=== PATIENT | male | born 1935 | race African-American/Black ===

== ENCOUNTER 2016-09-17 13:05 | Inpatient (IN) | payer MEDICARE, MEDICAID ==
[~2016-09-17] VITALS: Ht 172.7 cm; Wt 80.2 kg
[~2016-09-17 13:05] MED LIST: CARV12.52 PO; FURO40TA6 PO
[2016-09-17] MEDS ORDERED: SODIUM CHLORIDE 0.9% 1,000 ML IV ONE (13:23)
[2016-09-17] MEDS ORDERED: SODIUM CHLORIDE FLUSH 10ML SYR IVF ONE (13:30)
[2016-09-17 13:58] LABS: ASPARTATE AMINO TRANSFERASE 30 U/L (15-37); BLOOD UREA NITROGEN 13 mg/dL (7-18)
[2016-09-17] MEDS ORDERED: ACETAMINOPHEN 325 MG TABLET PO PRN (14:30)
[2016-09-17] MEDS ORDERED: ONDANSETRON 2MG/ML, 2ML IVP PRN (14:30)
[2016-09-17] MEDS ORDERED: CLINDAMYCIN PMX 600MG/50ML 50 ML ONE (14:53)
[2016-09-17] MEDS: CLINDAMYCIN PMX 600MG/50ML 50 ML IV SCH ×2 (14:56→22:31)
[2016-09-17 15:29] VITALS: BP 162/76
[2016-09-17] MEDS: ENOXAPARIN 40 MG/0.4 ML SQ SCH (15:45)
[2016-09-17] MEDS: ASPIRIN 81 MG TABLET EC PO SCH (15:45)
[2016-09-17] MEDS: CARVEDILOL 6.25 MG TABLET PO SCH (17:43)
[2016-09-17 19:08] VITALS: BP 158/72
[2016-09-17] MEDS: FAMOTIDINE 20 MG TABLET PO SCH (21:05)
[2016-09-18 01:37] VITALS: BP 151/68
[2016-09-18 05:38] LABS: BLOOD UREA NITROGEN 12 mg/dL (7-18)
[2016-09-18] MEDS: CARVEDILOL 6.25 MG TABLET PO SCH ×2 (06:06→17:55)
[2016-09-18] MEDS: ASPIRIN 81 MG TABLET EC PO SCH (06:06)
[2016-09-18] MEDS: CLINDAMYCIN PMX 600MG/50ML 50 ML IV SCH ×3 (06:06→21:52)
[2016-09-18 07:04] VITALS: BP 144/72
[2016-09-18] MEDS ORDERED: FUROSEMIDE 40 MG/4 ML IV SCH (09:00)
[2016-09-18] MEDS: FAMOTIDINE 20 MG TABLET PO SCH ×2 (09:08→21:52)
[2016-09-18 12:26] VITALS: BP 144/69
[2016-09-18] MEDS: ENOXAPARIN 40 MG/0.4 ML SQ SCH (14:20)
[2016-09-18 17:53] VITALS: BP 150/72
[2016-09-18 19:14] VITALS: BP 156/76
[2016-09-19] VITALS (7 sets, daily range): BP systolic 159–192; BP diastolic 79–100
[2016-09-19 05:15] LABS: BLOOD UREA NITROGEN 14 mg/dL (7-18)
[2016-09-19] MEDS: CARVEDILOL 6.25 MG TABLET PO SCH (05:22)
[2016-09-19] MEDS: ASPIRIN 81 MG TABLET EC PO SCH (05:22)
[2016-09-19] MEDS: CLINDAMYCIN PMX 600MG/50ML 50 ML IV SCH ×3 (05:32→22:37)
[2016-09-19] MEDS: FAMOTIDINE 20 MG TABLET PO SCH ×2 (09:00→22:39)
[2016-09-19] MEDS: ENOXAPARIN 40 MG/0.4 ML SQ SCH (15:07)
[2016-09-19] MEDS: ENALAPRILAT 1.25 MG/ML, 2ML IVPush PRN (15:42)
[2016-09-19] MEDS: CARVEDILOL 12.5 MG TABLET PO SCH (18:16)
[2016-09-20 01:48] VITALS: BP 163/87
[2016-09-20] MEDS: ENALAPRILAT 1.25 MG/ML, 2ML IVPush PRN (02:47)
[2016-09-20 05:20] LABS: BLOOD UREA NITROGEN 13 mg/dL (7-18)
[2016-09-20] MEDS: CARVEDILOL 12.5 MG TABLET PO SCH ×2 (06:07→17:53)
[2016-09-20] MEDS: ASPIRIN 81 MG TABLET EC PO SCH (06:07)
[2016-09-20] MEDS: CLINDAMYCIN PMX 600MG/50ML 50 ML IV SCH (06:07)
[2016-09-20 06:56] VITALS: BP 153/78
[2016-09-20] MEDS: FAMOTIDINE 20 MG TABLET PO SCH ×2 (09:00→20:54)
[2016-09-20 13:02] VITALS: BP 159/82
[2016-09-20] MEDS: CLINDAMYCIN 300 MG CAPSULE PO SCH ×2 (13:42→17:53)
[2016-09-20] MEDS: ENOXAPARIN 40 MG/0.4 ML SQ SCH (17:53)
[2016-09-20 19:25] VITALS: BP 157/81
[2016-09-21 02:11] VITALS: BP 156/90
[2016-09-21 05:04] LABS: BLOOD UREA NITROGEN 12 mg/dL (7-18)
[2016-09-21] MEDS: CLINDAMYCIN 300 MG CAPSULE PO SCH ×5 (05:35→23:49)
[2016-09-21] MEDS: ASPIRIN 81 MG TABLET EC PO SCH (05:35)
[2016-09-21] MEDS: CARVEDILOL 12.5 MG TABLET PO SCH ×2 (05:35→18:33)
[2016-09-21 07:07] VITALS: BP 157/93
[2016-09-21] MEDS: FAMOTIDINE 20 MG TABLET PO SCH ×2 (11:15→19:50)
[2016-09-21 12:15] VITALS: BP 160/83
[2016-09-21] MEDS: ENOXAPARIN 40 MG/0.4 ML SQ SCH (18:33)
[2016-09-21 19:25] VITALS: BP 166/91
[2016-09-21] MEDS: ENALAPRILAT 1.25 MG/ML, 2ML IVPush PRN (20:25)
[2016-09-22 02:12] VITALS: BP 159/86
[2016-09-22] MEDS: CARVEDILOL 12.5 MG TABLET PO SCH ×2 (05:14→17:27)
[2016-09-22] MEDS: ASPIRIN 81 MG TABLET EC PO SCH (05:14)
[2016-09-22] MEDS: CLINDAMYCIN 300 MG CAPSULE PO SCH ×4 (05:14→23:42)
[2016-09-22 07:07] VITALS: BP 124/83
[2016-09-22] MEDS: FAMOTIDINE 20 MG TABLET PO SCH ×2 (09:25→21:20)
[2016-09-22 13:26] VITALS: BP 157/72
[2016-09-22] MEDS: ENOXAPARIN 40 MG/0.4 ML SQ SCH (17:27)
[2016-09-22 19:10] VITALS: BP 149/78
[2016-09-23 03:31] VITALS: BP 166/87
[2016-09-23] MEDS: CLINDAMYCIN 300 MG CAPSULE PO SCH ×4 (05:16→23:50)
[2016-09-23] MEDS: CARVEDILOL 12.5 MG TABLET PO SCH (05:16)
[2016-09-23] MEDS: ASPIRIN 81 MG TABLET EC PO SCH (05:16)
[2016-09-23 09:23] VITALS: BP 115/70
[2016-09-23] MEDS: CARVEDILOL 25 MG TABLET PO SCH ×2 (09:48→17:37)
[2016-09-23] MEDS: FAMOTIDINE 20 MG TABLET PO SCH ×2 (09:48→21:19)
[2016-09-23 15:36] VITALS: BP 139/75
[2016-09-23] MEDS: ENOXAPARIN 40 MG/0.4 ML SQ SCH (17:37)
[2016-09-23 19:15] VITALS: BP 133/74
[2016-09-24] MEDS: HYDROcodone/APAP 5/325 TABLET PO PRN (00:08)
[2016-09-24 04:00] VITALS: BP 107/67
[2016-09-24] MEDS: CLINDAMYCIN 300 MG CAPSULE PO SCH ×4 (05:46→23:38)
[2016-09-24] MEDS: ASPIRIN 81 MG TABLET EC PO SCH (05:47)
[2016-09-24] MEDS: CARVEDILOL 25 MG TABLET PO SCH ×2 (05:48→17:13)
[2016-09-24 06:43] VITALS: BP 119/75
[2016-09-24] MEDS: FAMOTIDINE 20 MG TABLET PO SCH ×2 (11:26→21:09)
[2016-09-24 12:57] VITALS: BP 126/68
[2016-09-24] MEDS: ENOXAPARIN 40 MG/0.4 ML SQ SCH (17:13)
[2016-09-24 19:25] VITALS: BP 106/62
[2016-09-25 02:10] VITALS: BP 146/95
[2016-09-25] MEDS: ASPIRIN 81 MG TABLET EC PO SCH (05:26)
[2016-09-25] MEDS: CLINDAMYCIN 300 MG CAPSULE PO SCH ×5 (05:27→23:22)
[2016-09-25] MEDS: CARVEDILOL 25 MG TABLET PO SCH ×2 (05:27→17:26)
[2016-09-25 07:28] VITALS: BP 130/73
[2016-09-25] MEDS: FAMOTIDINE 20 MG TABLET PO SCH ×2 (08:05→20:04)
[2016-09-25 13:04] VITALS: BP 138/76
[2016-09-25] MEDS: ENOXAPARIN 40 MG/0.4 ML SQ SCH (17:27)
[2016-09-25 20:19] VITALS: BP 120/73
[2016-09-26 02:14] VITALS: BP 128/77
[2016-09-26] MEDS: ASPIRIN 81 MG TABLET EC PO SCH (05:48)
[2016-09-26] MEDS: CARVEDILOL 25 MG TABLET PO SCH ×2 (05:48→17:45)
[2016-09-26] MEDS: CLINDAMYCIN 300 MG CAPSULE PO SCH ×4 (05:48→23:13)
[2016-09-26 07:14] VITALS: BP 131/68
[2016-09-26] MEDS: FAMOTIDINE 20 MG TABLET PO SCH ×2 (08:40→20:17)
[2016-09-26] MEDS: HYDROcodone/APAP 5/325 TABLET PO PRN (10:18)
[2016-09-26 13:16] VITALS: BP 139/65
[2016-09-26] MEDS: ENOXAPARIN 40 MG/0.4 ML SQ SCH (17:45)
[2016-09-26 19:24] VITALS: BP 127/64
[2016-09-27 04:00] VITALS: BP 146/76
[2016-09-27] MEDS: ASPIRIN 81 MG TABLET EC PO SCH (06:02)
[2016-09-27] MEDS: CLINDAMYCIN 300 MG CAPSULE PO SCH ×3 (06:02→17:45)
[2016-09-27] MEDS: CARVEDILOL 25 MG TABLET PO SCH ×2 (06:02→17:45)
[2016-09-27] MEDS: FAMOTIDINE 20 MG TABLET PO SCH ×2 (07:58→20:10)
[2016-09-27 08:00] VITALS: BP 155/84
[2016-09-27 13:42] VITALS: BP 120/67
[2016-09-27] MEDS: HYDROcodone/APAP 5/325 TABLET PO PRN (14:18)
[2016-09-27] MEDS: ENOXAPARIN 40 MG/0.4 ML SQ SCH (17:45)
[2016-09-27 21:08] VITALS: BP 132/73
[2016-09-28] MEDS: CLINDAMYCIN 300 MG CAPSULE PO SCH ×3 (00:20→11:22)
[2016-09-28] MEDS: CARVEDILOL 25 MG TABLET PO SCH (06:09)
[2016-09-28] MEDS: ASPIRIN 81 MG TABLET EC PO SCH (06:09)
[2016-09-28 06:50] VITALS: BP 110/64
[2016-09-28 06:59] VITALS: BP 126/66
[2016-09-28] MEDS: FAMOTIDINE 20 MG TABLET PO SCH ×3 (11:22→22:01)
[2016-09-28 12:47] VITALS: BP 114/68
[2016-09-28] MEDS: ENOXAPARIN 40 MG/0.4 ML SQ SCH (17:31)
[2016-09-28 18:43] VITALS: BP 109/69
[2016-09-29 01:29] VITALS: BP 137/72
[2016-09-29] MEDS: ASPIRIN 81 MG TABLET EC PO SCH (06:00)
[2016-09-29 09:03] VITALS: BP 117/67
[2016-09-29 14:45] VITALS: BP 173/65
[2016-09-29] MEDS: ENALAPRILAT 1.25 MG/ML, 2ML IVPush PRN (15:30)
[2016-09-29] MEDS: ENOXAPARIN 40 MG/0.4 ML SQ SCH (17:29)
[2016-09-29] MEDS: CARVEDILOL 12.5 MG TABLET PO SCH (17:29)
[2016-09-29 19:17] VITALS: BP 121/70
[2016-09-29] MEDS: FAMOTIDINE 20 MG TABLET PO SCH (20:48)
[2016-09-30 02:00] VITALS: BP 154/78
[2016-09-30] MEDS: ASPIRIN 81 MG TABLET EC PO SCH (04:59)
[2016-09-30] MEDS: CARVEDILOL 12.5 MG TABLET PO SCH ×2 (04:59→17:48)
[2016-09-30 06:57] VITALS: BP 115/73
[2016-09-30] MEDS: FAMOTIDINE 20 MG TABLET PO SCH ×2 (07:27→21:00)
[2016-09-30 15:04] VITALS: BP 152/76
[2016-09-30] MEDS: ENOXAPARIN 40 MG/0.4 ML SQ SCH (17:48)
[2016-09-30 19:03] VITALS: BP 113/62
[2016-10-01 03:09] VITALS: BP 131/81
[2016-10-01] MEDS: CARVEDILOL 12.5 MG TABLET PO SCH ×2 (05:25→17:45)
[2016-10-01] MEDS: ASPIRIN 81 MG TABLET EC PO SCH (05:29)
[2016-10-01 07:04] VITALS: BP 142/76
[2016-10-01] MEDS: FAMOTIDINE 20 MG TABLET PO SCH ×2 (08:47→20:27)
[2016-10-01 12:53] VITALS: BP 136/69
[2016-10-01] MEDS: ENOXAPARIN 40 MG/0.4 ML SQ SCH (17:46)
[2016-10-01 18:41] VITALS: BP 152/75
[2016-10-01] MEDS: DOCUSATE 100 MG CAPSULE PO PRN (20:27)
[2016-10-02 01:19] VITALS: BP 124/67
[2016-10-02] MEDS: CARVEDILOL 12.5 MG TABLET PO SCH ×2 (05:34→15:54)
[2016-10-02] MEDS: ASPIRIN 81 MG TABLET EC PO SCH (05:36)
[2016-10-02 07:05] VITALS: BP 143/76
[2016-10-02] MEDS: FAMOTIDINE 20 MG TABLET PO SCH ×2 (07:36→20:33)
[2016-10-02 14:15] VITALS: BP 118/60
[2016-10-02] MEDS: ENOXAPARIN 40 MG/0.4 ML SQ SCH (15:54)
[2016-10-02 19:04] VITALS: BP 131/70
[2016-10-03] MEDS: ASPIRIN 81 MG TABLET EC PO SCH (05:30)
[2016-10-03] MEDS: CARVEDILOL 12.5 MG TABLET PO SCH ×2 (06:00→17:50)
[2016-10-03 07:30] VITALS: BP 138/87
[2016-10-03] MEDS: FAMOTIDINE 20 MG TABLET PO SCH ×2 (08:58→22:46)
[2016-10-03 15:00] VITALS: BP 150/64
[2016-10-03] MEDS: ENOXAPARIN 40 MG/0.4 ML SQ SCH (17:50)
[2016-10-03 19:54] VITALS: BP 105/62
[2016-10-04 02:24] VITALS: BP 127/76
[2016-10-04] MEDS: ASPIRIN 81 MG TABLET EC PO SCH (05:30)
[2016-10-04] MEDS: CARVEDILOL 12.5 MG TABLET PO SCH ×2 (05:30→18:00)
[2016-10-04 07:03] VITALS: BP 130/79
[2016-10-04] MEDS: FAMOTIDINE 20 MG TABLET PO SCH ×2 (11:08→20:37)
[2016-10-04 14:19] VITALS: BP 132/78
[2016-10-04] MEDS: ENOXAPARIN 40 MG/0.4 ML SQ SCH (18:30)
[2016-10-04 18:56] VITALS: BP 147/71
[2016-10-04] MEDS: HYDROcodone/APAP 5/325 TABLET PO PRN (20:38)
[2016-10-05 03:06] VITALS: BP 154/89
[2016-10-05] MEDS: ASPIRIN 81 MG TABLET EC PO SCH (06:09)
[2016-10-05] MEDS: CARVEDILOL 12.5 MG TABLET PO SCH ×2 (06:09→16:49)
[2016-10-05 06:40] VITALS: BP 147/67
[2016-10-05] MEDS: FAMOTIDINE 20 MG TABLET PO SCH ×2 (08:49→22:04)
[2016-10-05 13:13] VITALS: BP 150/82
[2016-10-05] MEDS: ENOXAPARIN 40 MG/0.4 ML SQ SCH (16:49)
[2016-10-05 19:10] VITALS: BP 119/71
[2016-10-06 01:13] VITALS: BP 121/69
[2016-10-06] MEDS: CARVEDILOL 12.5 MG TABLET PO SCH ×2 (06:19→17:56)
[2016-10-06] MEDS: ASPIRIN 81 MG TABLET EC PO SCH (06:20)
[2016-10-06 08:00] VITALS: BP 128/79
[2016-10-06] MEDS: FAMOTIDINE 20 MG TABLET PO SCH ×2 (09:46→21:57)
[2016-10-06 15:38] VITALS: BP 122/60
[2016-10-06 17:53] VITALS: BP 144/60
[2016-10-06] MEDS: ENOXAPARIN 40 MG/0.4 ML SQ SCH (17:57)
[2016-10-06 20:20] VITALS: BP 128/76
[2016-10-07 02:00] VITALS: BP 126/84
[2016-10-07] MEDS: ASPIRIN 81 MG TABLET EC PO SCH (06:24)
[2016-10-07] MEDS: CARVEDILOL 12.5 MG TABLET PO SCH ×2 (06:24→18:39)
[2016-10-07] MEDS: FAMOTIDINE 20 MG TABLET PO SCH ×2 (07:54→20:41)
[2016-10-07 09:13] VITALS: BP 125/70
[2016-10-07 14:09] VITALS: BP 113/73
[2016-10-07] MEDS: ENOXAPARIN 40 MG/0.4 ML SQ SCH (18:39)
[2016-10-07 18:46] VITALS: BP 128/79
[2016-10-08 02:00] VITALS: BP 154/77
[2016-10-08] MEDS: ASPIRIN 81 MG TABLET EC PO SCH (06:19)
[2016-10-08] MEDS: CARVEDILOL 12.5 MG TABLET PO SCH ×2 (06:20→18:36)
[2016-10-08 07:44] VITALS: BP 116/65
[2016-10-08] MEDS: FAMOTIDINE 20 MG TABLET PO SCH ×2 (10:41→22:05)
[2016-10-08 16:25] VITALS: BP 145/70
[2016-10-08] MEDS: ENOXAPARIN 40 MG/0.4 ML SQ SCH (18:36)
[2016-10-08 20:00] VITALS: BP 105/84
[2016-10-09 01:45] VITALS: BP 139/72
[2016-10-09] MEDS: ASPIRIN 81 MG TABLET EC PO SCH (06:29)
[2016-10-09] MEDS: CARVEDILOL 12.5 MG TABLET PO SCH ×2 (06:29→18:00)
[2016-10-09 07:53] VITALS: BP 121/61
[2016-10-09] MEDS: FAMOTIDINE 20 MG TABLET PO SCH ×2 (09:02→21:49)
[2016-10-09 13:45] VITALS: BP 118/69
[2016-10-09] MEDS: ENOXAPARIN 40 MG/0.4 ML SQ SCH (18:24)
[2016-10-09 19:12] VITALS: BP 163/79
[2016-10-09 21:45] VITALS: BP 147/69
[2016-10-10 01:12] VITALS: BP 148/73
[2016-10-10] MEDS: CARVEDILOL 12.5 MG TABLET PO SCH ×2 (05:42→18:00)
[2016-10-10] MEDS: ASPIRIN 81 MG TABLET EC PO SCH (05:42)
[2016-10-10 07:23] VITALS: BP 137/84
[2016-10-10] MEDS: FAMOTIDINE 20 MG TABLET PO SCH ×2 (07:25→20:23)
[2016-10-10 14:18] VITALS: BP 123/70
[2016-10-10] MEDS: ENOXAPARIN 40 MG/0.4 ML SQ SCH (18:00)
[2016-10-10 18:50] VITALS: BP 159/76
[2016-10-11 01:54] VITALS: BP 132/78
[2016-10-11 06:18] VITALS: BP 135/71
[2016-10-11] MEDS: ASPIRIN 81 MG TABLET EC PO SCH (06:18)
[2016-10-11] MEDS: CARVEDILOL 12.5 MG TABLET PO SCH ×2 (06:18→18:39)
[2016-10-11 06:59] LABS: BLOOD UREA NITROGEN 22 mg/dL (7-18)
[2016-10-11] MEDS: FAMOTIDINE 20 MG TABLET PO SCH ×2 (10:08→20:52)
[2016-10-11 13:54] VITALS: BP 143/75
[2016-10-11] MEDS: ENOXAPARIN 40 MG/0.4 ML SQ SCH (18:39)
[2016-10-11 20:28] VITALS: BP 139/77
[2016-10-12 02:00] VITALS: BP 136/78
[2016-10-12] MEDS: ASPIRIN 81 MG TABLET EC PO SCH (06:02)
[2016-10-12] MEDS: CARVEDILOL 12.5 MG TABLET PO SCH ×2 (06:03→17:34)
[2016-10-12] MEDS: FAMOTIDINE 20 MG TABLET PO SCH ×2 (08:38→21:36)
[2016-10-12 08:45] VITALS: BP 155/78
[2016-10-12 13:22] VITALS: BP 148/69
[2016-10-12 17:31] VITALS: BP 152/84
[2016-10-12] MEDS: ENOXAPARIN 40 MG/0.4 ML SQ SCH (17:35)
[2016-10-12 19:18] VITALS: BP 127/77
[2016-10-13 01:00] VITALS: BP 145/83
[2016-10-13] MEDS: ASPIRIN 81 MG TABLET EC PO SCH ×2 (05:52→22:46)
[2016-10-13] MEDS: CARVEDILOL 12.5 MG TABLET PO SCH ×2 (05:52→17:43)
[2016-10-13 06:58] VITALS: BP 138/72
[2016-10-13] MEDS: FAMOTIDINE 20 MG TABLET PO SCH ×2 (09:06→22:46)
[2016-10-13 12:38] VITALS: BP 126/66
[2016-10-13 17:42] VITALS: BP 145/76
[2016-10-13] MEDS: ENOXAPARIN 40 MG/0.4 ML SQ SCH (17:43)
[2016-10-13 20:21] VITALS: BP 117/67
[2016-10-14 04:41] VITALS: BP 132/74
[2016-10-14 06:57] VITALS: BP 149/68
[2016-10-14] MEDS: CARVEDILOL 12.5 MG TABLET PO SCH ×2 (07:02→17:51)
[2016-10-14] MEDS: FAMOTIDINE 20 MG TABLET PO SCH ×2 (10:33→22:32)
[2016-10-14 13:16] VITALS: BP 155/80
[2016-10-14] MEDS: ENOXAPARIN 40 MG/0.4 ML SQ SCH (17:51)
[2016-10-14 19:30] VITALS: BP 133/72
[2016-10-15 02:35] VITALS: BP 143/75
[2016-10-15 05:57] LABS: BLOOD UREA NITROGEN 18 mg/dL (7-18)
[2016-10-15] MEDS: ASPIRIN 81 MG TABLET EC PO SCH (06:33)
[2016-10-15] MEDS: CARVEDILOL 12.5 MG TABLET PO SCH ×2 (06:35→17:46)
[2016-10-15 08:56] VITALS: BP 113/70
[2016-10-15] MEDS: FAMOTIDINE 20 MG TABLET PO SCH ×2 (09:33→19:23)
[2016-10-15 15:43] VITALS: BP 135/76
[2016-10-15 17:43] VITALS: BP 150/79
[2016-10-15] MEDS: ENOXAPARIN 40 MG/0.4 ML SQ SCH (17:46)
[2016-10-15 19:39] VITALS: BP 148/80
[2016-10-16 03:39] VITALS: BP 172/88
[2016-10-16] MEDS: ASPIRIN 81 MG TABLET EC PO SCH (03:49)
[2016-10-16] MEDS: CARVEDILOL 12.5 MG TABLET PO SCH ×2 (03:49→17:16)
[2016-10-16 05:00] VITALS: BP 112/70
[2016-10-16] MEDS: FAMOTIDINE 20 MG TABLET PO SCH ×2 (08:08→19:39)
[2016-10-16 08:55] VITALS: BP 118/64
[2016-10-16 15:09] VITALS: BP 145/77
[2016-10-16 17:13] VITALS: BP 153/80
[2016-10-16] MEDS: ENOXAPARIN 40 MG/0.4 ML SQ SCH (17:17)
[2016-10-16 19:43] VITALS: BP 118/73
[2016-10-17 02:56] VITALS: BP 120/68
[2016-10-17] MEDS: ASPIRIN 81 MG TABLET EC PO SCH (05:01)
[2016-10-17] MEDS: CARVEDILOL 12.5 MG TABLET PO SCH ×2 (05:01→17:33)
[2016-10-17] MEDS: FAMOTIDINE 20 MG TABLET PO SCH ×2 (07:37→20:25)
[2016-10-17 08:11] VITALS: BP 100/56
[2016-10-17 12:29] VITALS: BP 146/77
[2016-10-17] MEDS: ENOXAPARIN 40 MG/0.4 ML SQ SCH (17:33)
[2016-10-17 20:17] VITALS: BP 151/74
[2016-10-18 04:32] VITALS: BP 123/71
[2016-10-18] MEDS: CARVEDILOL 12.5 MG TABLET PO SCH ×2 (05:10→18:08)
[2016-10-18] MEDS: ASPIRIN 81 MG TABLET EC PO SCH (05:10)
[2016-10-18 06:55] VITALS: BP 125/83
[2016-10-18] MEDS: FAMOTIDINE 20 MG TABLET PO SCH ×2 (09:00→22:50)
[2016-10-18 16:24] VITALS: BP 142/67
[2016-10-18] MEDS: ENOXAPARIN 40 MG/0.4 ML SQ SCH (18:08)
[2016-10-18 20:27] VITALS: BP 157/87
[2016-10-19 02:00] VITALS: BP 148/75
[2016-10-19] MEDS: CARVEDILOL 12.5 MG TABLET PO SCH ×2 (05:56→18:25)
[2016-10-19] MEDS: ASPIRIN 81 MG TABLET EC PO SCH (05:58)
[2016-10-19] MEDS: FAMOTIDINE 20 MG TABLET PO SCH ×2 (09:16→22:24)
[2016-10-19 10:16] VITALS: BP 138/67
[2016-10-19 11:28] LABS: BLOOD UREA NITROGEN 16 mg/dL (7-18)
[2016-10-19] MEDS: CEPHALEXIN 500 MG CAPSULE PO SCH ×2 (11:57→18:25)
[2016-10-19 14:50] VITALS: BP 157/68
[2016-10-19] MEDS: ENOXAPARIN 40 MG/0.4 ML SQ SCH (18:25)
[2016-10-19 18:38] VITALS: BP 137/65
[2016-10-20] MEDS: CEPHALEXIN 500 MG CAPSULE PO SCH ×4 (00:22→18:11)
[2016-10-20 00:46] VITALS: BP 137/75
[2016-10-20] MEDS: ASPIRIN 81 MG TABLET EC PO SCH (05:26)
[2016-10-20] MEDS: CARVEDILOL 12.5 MG TABLET PO SCH ×2 (05:27→18:11)
[2016-10-20 07:27] VITALS: BP 122/66
[2016-10-20] MEDS: FAMOTIDINE 20 MG TABLET PO SCH ×2 (08:21→21:54)
[2016-10-20] MEDS ORDERED: LIDOCAINE 2% VISCOUS 15 ML UDC MM PRN (12:30)
[2016-10-20] MEDS ORDERED: LIDOCAINE 1%-EPI 1:100K, 20ML INFIL ONE (12:30)
[2016-10-20 14:09] VITALS: BP 128/78
[2016-10-20 18:10] VITALS: BP 139/68
[2016-10-20] MEDS: ENOXAPARIN 40 MG/0.4 ML SQ SCH (18:11)
[2016-10-20 18:55] VITALS: BP 130/69
[2016-10-21] MEDS: CEPHALEXIN 500 MG CAPSULE PO SCH ×2 (00:44→05:33)
[2016-10-21 00:51] VITALS: BP 103/68
[2016-10-21] MEDS: ASPIRIN 81 MG TABLET EC PO SCH (05:33)
[2016-10-21] MEDS: CARVEDILOL 12.5 MG TABLET PO SCH ×2 (05:33→17:57)
[2016-10-21 07:34] VITALS: BP 127/63
[2016-10-21] MEDS: FAMOTIDINE 20 MG TABLET PO SCH ×2 (08:12→20:28)
[2016-10-21] MEDS: SULFAMETH./TRIMETHOPRIM DS 800MG/160MG TABLET PO SCH ×2 (12:56→20:28)
[2016-10-21 13:16] VITALS: BP 130/70
[2016-10-21 17:56] VITALS: BP 119/70
[2016-10-21] MEDS: ENOXAPARIN 40 MG/0.4 ML SQ SCH (17:57)
[2016-10-21 20:29] VITALS: BP 114/57
[2016-10-22 02:15] VITALS: BP 122/65
[2016-10-22] MEDS: CARVEDILOL 12.5 MG TABLET PO SCH ×2 (05:10→17:36)
[2016-10-22] MEDS: ASPIRIN 81 MG TABLET EC PO SCH (05:10)
[2016-10-22 05:36] LABS: BLOOD UREA NITROGEN 17 mg/dL (7-18)
[2016-10-22 06:52] VITALS: BP 149/85
[2016-10-22] MEDS: FAMOTIDINE 20 MG TABLET PO SCH ×2 (09:28→23:08)
[2016-10-22] MEDS: SULFAMETH./TRIMETHOPRIM DS 800MG/160MG TABLET PO SCH ×2 (09:28→23:08)
[2016-10-22 13:19] VITALS: BP 149/71
[2016-10-22] MEDS: ENOXAPARIN 40 MG/0.4 ML SQ SCH (17:37)
[2016-10-22 19:38] VITALS: BP 102/61
[2016-10-23 01:42] VITALS: BP 118/71
[2016-10-23 06:27] VITALS: BP 130/76
[2016-10-23] MEDS: ASPIRIN 81 MG TABLET EC PO SCH (06:29)
[2016-10-23] MEDS: CARVEDILOL 12.5 MG TABLET PO SCH ×2 (06:29→17:34)
[2016-10-23 07:49] VITALS: BP 123/67
[2016-10-23] MEDS: FAMOTIDINE 20 MG TABLET PO SCH ×2 (09:55→22:27)
[2016-10-23] MEDS: SULFAMETH./TRIMETHOPRIM DS 800MG/160MG TABLET PO SCH ×2 (09:55→22:27)
[2016-10-23 14:04] VITALS: BP 99/58
[2016-10-23 17:33] VITALS: BP 112/57
[2016-10-23] MEDS: ENOXAPARIN 40 MG/0.4 ML SQ SCH (17:35)
[2016-10-23 20:18] VITALS: BP 129/68
[2016-10-24 04:27] VITALS: BP 137/76
[2016-10-24] MEDS: ASPIRIN 81 MG TABLET EC PO SCH (06:35)
[2016-10-24] MEDS: CARVEDILOL 12.5 MG TABLET PO SCH ×3 (06:35→21:03)
[2016-10-24 06:45] VITALS: BP 127/70
[2016-10-24] MEDS: FAMOTIDINE 20 MG TABLET PO SCH ×2 (10:18→21:04)
[2016-10-24] MEDS: SULFAMETH./TRIMETHOPRIM DS 800MG/160MG TABLET PO SCH ×2 (10:18→21:04)
[2016-10-24 13:45] VITALS: BP 102/51
[2016-10-24] MEDS: ENOXAPARIN 40 MG/0.4 ML SQ SCH (18:19)
[2016-10-24 21:02] VITALS: BP 135/69
[2016-10-25 02:08] VITALS: BP 112/68
[2016-10-25 06:24] VITALS: BP 109/61
[2016-10-25] MEDS: ASPIRIN 81 MG TABLET EC PO SCH (06:25)
[2016-10-25] MEDS: CARVEDILOL 12.5 MG TABLET PO SCH ×2 (06:26→18:00)
[2016-10-25 07:00] VITALS: BP 133/74
[2016-10-25] MEDS: SULFAMETH./TRIMETHOPRIM DS 800MG/160MG TABLET PO SCH ×2 (09:31→21:22)
[2016-10-25] MEDS: FAMOTIDINE 20 MG TABLET PO SCH ×2 (09:34→21:22)
[2016-10-25 13:49] VITALS: BP 120/73
[2016-10-25] MEDS: ENOXAPARIN 40 MG/0.4 ML SQ SCH (18:00)
[2016-10-25 19:32] VITALS: BP 121/68
[2016-10-26 01:43] VITALS: BP 139/78
[2016-10-26] MEDS: CARVEDILOL 12.5 MG TABLET PO SCH ×2 (05:48→18:02)
[2016-10-26] MEDS: ASPIRIN 81 MG TABLET EC PO SCH (05:48)
[2016-10-26 08:09] VITALS: BP 122/72
[2016-10-26] MEDS: SULFAMETH./TRIMETHOPRIM DS 800MG/160MG TABLET PO SCH ×2 (08:54→22:05)
[2016-10-26] MEDS: FAMOTIDINE 20 MG TABLET PO SCH ×2 (08:54→22:05)
[2016-10-26 12:50] VITALS: BP 135/74
[2016-10-26 18:00] VITALS: BP 116/64
[2016-10-26] MEDS: ENOXAPARIN 40 MG/0.4 ML SQ SCH (18:02)
[2016-10-26 19:28] VITALS: BP 104/59
[2016-10-27 01:50] VITALS: BP 110/76
[2016-10-27] MEDS: ASPIRIN 81 MG TABLET EC PO SCH (05:31)
[2016-10-27] MEDS: CARVEDILOL 12.5 MG TABLET PO SCH ×2 (05:31→17:27)
[2016-10-27 06:59] VITALS: BP 129/67
[2016-10-27] MEDS: FAMOTIDINE 20 MG TABLET PO SCH ×2 (09:16→21:58)
[2016-10-27] MEDS: SULFAMETH./TRIMETHOPRIM DS 800MG/160MG TABLET PO SCH ×2 (09:16→21:58)
[2016-10-27 13:23] VITALS: BP 144/78
[2016-10-27] MEDS: ENOXAPARIN 40 MG/0.4 ML SQ SCH (17:27)
[2016-10-27 19:16] VITALS: BP 138/72
[2016-10-28 02:42] VITALS: BP 129/66
[2016-10-28] MEDS: ASPIRIN 81 MG TABLET EC PO SCH (05:13)
[2016-10-28] MEDS: CARVEDILOL 12.5 MG TABLET PO SCH ×2 (05:13→17:26)
[2016-10-28 07:20] VITALS: BP 108/67
[2016-10-28] MEDS: FAMOTIDINE 20 MG TABLET PO SCH ×2 (08:48→20:50)
[2016-10-28] MEDS: SULFAMETH./TRIMETHOPRIM DS 800MG/160MG TABLET PO SCH ×2 (08:48→20:50)
[2016-10-28 12:37] VITALS: BP 135/70
[2016-10-28] MEDS: ENOXAPARIN 40 MG/0.4 ML SQ SCH (17:26)
[2016-10-28 18:50] VITALS: BP 124/72
[2016-10-29 01:30] VITALS: BP 138/79
[2016-10-29] MEDS: ASPIRIN 81 MG TABLET EC PO SCH (05:28)
[2016-10-29] MEDS: CARVEDILOL 12.5 MG TABLET PO SCH ×2 (05:28→17:33)
[2016-10-29 07:20] VITALS: BP 119/61
[2016-10-29] MEDS: SULFAMETH./TRIMETHOPRIM DS 800MG/160MG TABLET PO SCH ×2 (08:25→21:22)
[2016-10-29] MEDS: FAMOTIDINE 20 MG TABLET PO SCH ×2 (08:25→21:22)
[2016-10-29 13:46] VITALS: BP 132/74
[2016-10-29] MEDS: ENOXAPARIN 40 MG/0.4 ML SQ SCH (17:33)
[2016-10-29 19:14] VITALS: BP 113/65
[2016-10-30 01:55] VITALS: BP 117/63
[2016-10-30] MEDS: ASPIRIN 81 MG TABLET EC PO SCH (06:34)
[2016-10-30 06:35] VITALS: BP 117/76
[2016-10-30] MEDS: CARVEDILOL 12.5 MG TABLET PO SCH ×2 (06:35→16:52)
[2016-10-30 06:42] LABS: BLOOD UREA NITROGEN 17 mg/dL (7-18)
[2016-10-30 08:36] VITALS: BP 126/70
[2016-10-30] MEDS: FAMOTIDINE 20 MG TABLET PO SCH ×2 (10:55→21:12)
[2016-10-30] MEDS: SULFAMETH./TRIMETHOPRIM DS 800MG/160MG TABLET PO SCH ×2 (10:55→21:12)
[2016-10-30 12:41] VITALS: BP 123/67
[2016-10-30] MEDS: ENOXAPARIN 40 MG/0.4 ML SQ SCH (16:53)
[2016-10-30] MEDS: MAGNESIUM OXIDE 400 MG TABLET PO SCH (16:53)
[2016-10-30 21:03] VITALS: BP 119/66
[2016-10-31 03:28] VITALS: BP 116/62
[2016-10-31] MEDS: CARVEDILOL 12.5 MG TABLET PO SCH ×2 (06:14→21:46)
[2016-10-31] MEDS: ASPIRIN 81 MG TABLET EC PO SCH (06:14)
[2016-10-31 06:54] VITALS: BP 118/66
[2016-10-31 12:50] VITALS: BP 108/70
[2016-10-31] MEDS: MAGNESIUM OXIDE 400 MG TABLET PO SCH (13:07)
[2016-10-31] MEDS: FAMOTIDINE 20 MG TABLET PO SCH ×2 (13:07→21:46)
[2016-10-31] MEDS: SULFAMETH./TRIMETHOPRIM DS 800MG/160MG TABLET PO SCH ×2 (13:08→21:46)
[2016-10-31] MEDS: ENOXAPARIN 40 MG/0.4 ML SQ SCH (17:56)
[2016-10-31 19:00] VITALS: BP 136/79
[2016-11-01 02:00] VITALS: BP 111/64
[2016-11-01] MEDS: ASPIRIN 81 MG TABLET EC PO SCH (05:54)
[2016-11-01] MEDS: CARVEDILOL 12.5 MG TABLET PO SCH ×2 (05:54→17:59)
[2016-11-01 08:04] VITALS: BP 121/77
[2016-11-01] MEDS: MAGNESIUM OXIDE 400 MG TABLET PO SCH (08:45)
[2016-11-01] MEDS: FAMOTIDINE 20 MG TABLET PO SCH ×2 (08:45→21:32)
[2016-11-01] MEDS: SULFAMETH./TRIMETHOPRIM DS 800MG/160MG TABLET PO SCH ×2 (08:45→21:32)
[2016-11-01 14:37] VITALS: BP 116/68
[2016-11-01 17:58] VITALS: BP 113/63
[2016-11-01] MEDS: ENOXAPARIN 40 MG/0.4 ML SQ SCH (17:59)
[2016-11-01 21:50] VITALS: BP 110/67
[2016-11-02 04:00] VITALS: BP 111/65
[2016-11-02] MEDS: ASPIRIN 81 MG TABLET EC PO SCH (06:28)
[2016-11-02] MEDS: CARVEDILOL 12.5 MG TABLET PO SCH ×2 (06:28→18:24)
[2016-11-02 07:31] VITALS: BP 109/60
[2016-11-02 08:42] LABS: BLOOD UREA NITROGEN 20 mg/dL (7-18)
[2016-11-02] MEDS: SULFAMETH./TRIMETHOPRIM DS 800MG/160MG TABLET PO SCH ×2 (09:10→20:20)
[2016-11-02] MEDS: MAGNESIUM OXIDE 400 MG TABLET PO SCH (09:11)
[2016-11-02] MEDS: FAMOTIDINE 20 MG TABLET PO SCH ×2 (09:11→20:20)
[2016-11-02 12:41] VITALS: BP 105/62
[2016-11-02] MEDS: ENOXAPARIN 40 MG/0.4 ML SQ SCH (18:28)
[2016-11-02 20:13] VITALS: BP 122/64
[2016-11-03 04:40] VITALS: BP 118/71
[2016-11-03] MEDS: CARVEDILOL 12.5 MG TABLET PO SCH ×2 (05:40→17:05)
[2016-11-03] MEDS: ASPIRIN 81 MG TABLET EC PO SCH (05:56)
[2016-11-03 08:59] VITALS: BP 102/53
[2016-11-03] MEDS: FAMOTIDINE 20 MG TABLET PO SCH ×2 (09:39→20:22)
[2016-11-03] MEDS: MAGNESIUM OXIDE 400 MG TABLET PO SCH (09:39)
[2016-11-03] MEDS: SULFAMETH./TRIMETHOPRIM DS 800MG/160MG TABLET PO SCH ×2 (09:39→20:21)
[2016-11-03 13:06] VITALS: BP 127/68
[2016-11-03] MEDS ORDERED: ENOXAPARIN 30 MG/0.3 ML SQ SCH (14:30)
[2016-11-03 17:03] VITALS: BP 130/69
[2016-11-03 19:29] VITALS: BP 125/67
[2016-11-04 02:07] VITALS: BP 123/69
[2016-11-04 05:30] LABS: BLOOD UREA NITROGEN 29 mg/dL (7-18)
[2016-11-04 05:35] LABS: ASPARTATE AMINO TRANSFERASE 20 U/L (15-37)
[2016-11-04] MEDS: CARVEDILOL 12.5 MG TABLET PO SCH ×2 (06:56→17:17)
[2016-11-04] MEDS: ASPIRIN 81 MG TABLET EC PO SCH (06:56)
[2016-11-04] MEDS: DOCUSATE 100 MG CAPSULE PO PRN (06:57)
[2016-11-04 08:15] VITALS: BP 109/69
[2016-11-04] MEDS ORDERED: SODIUM CHLORIDE 0.9% 1,000 ML IV SCH (09:00)
[2016-11-04] MEDS: MAGNESIUM OXIDE 400 MG TABLET PO SCH (09:30)
[2016-11-04] MEDS: FAMOTIDINE 20 MG TABLET PO SCH (09:30)
[2016-11-04] MEDS: HEPARIN 5,000 UNITS/ML, 1ML SQ SCH ×2 (09:31→17:16)
[2016-11-04] MEDS: SODIUM CHLORIDE 0.9% 1,000 ML IV SCH ×2 (11:36→17:24)
[2016-11-04 12:50] VITALS: BP 131/64
[2016-11-04 15:20] LABS: BLOOD UREA NITROGEN 25 mg/dL (7-18)
[2016-11-04 17:17] VITALS: BP 166/86
[2016-11-04 19:01] VITALS: BP 144/68
[2016-11-05] MEDS: HEPARIN 5,000 UNITS/ML, 1ML SQ SCH ×3 (01:15→17:09)
[2016-11-05 01:45] VITALS: BP 140/68
[2016-11-05] MEDS: SODIUM CHLORIDE 0.9% 1,000 ML IV SCH ×4 (03:00→19:15)
[2016-11-05 05:16] VITALS: BP 125/78
[2016-11-05] MEDS: ASPIRIN 81 MG TABLET EC PO SCH (05:35)
[2016-11-05] MEDS: CARVEDILOL 12.5 MG TABLET PO SCH ×2 (05:35→17:09)
[2016-11-05 06:52] LABS: BLOOD UREA NITROGEN 20 mg/dL (7-18)
[2016-11-05 09:07] VITALS: BP 128/64
[2016-11-05] MEDS: MAGNESIUM OXIDE 400 MG TABLET PO SCH (10:01)
[2016-11-05] MEDS: FAMOTIDINE 20 MG TABLET PO SCH (10:01)
[2016-11-05 15:08] VITALS: BP 144/67
[2016-11-05 17:10] VITALS: BP 127/74
[2016-11-05 19:38] VITALS: BP 129/68
[2016-11-06] MEDS: HEPARIN 5,000 UNITS/ML, 1ML SQ SCH ×3 (01:04→18:11)
[2016-11-06 03:20] VITALS: BP 144/79
[2016-11-06 05:52] LABS: BLOOD UREA NITROGEN 17 mg/dL (7-18)
[2016-11-06] MEDS: ASPIRIN 81 MG TABLET EC PO SCH (06:05)
[2016-11-06] MEDS: CARVEDILOL 12.5 MG TABLET PO SCH ×2 (06:05→18:11)
[2016-11-06 07:39] VITALS: BP 119/64
[2016-11-06] MEDS: FAMOTIDINE 20 MG TABLET PO SCH (10:26)
[2016-11-06] MEDS: SODIUM CHLORIDE 0.9% 1,000 ML IV SCH ×3 (10:29→19:33)
[2016-11-06] MEDS: MAGNESIUM OXIDE 400 MG TABLET PO SCH (10:29)
[2016-11-06 14:27] VITALS: BP 131/71
[2016-11-06 20:20] VITALS: BP 115/71
[2016-11-07] MEDS: HEPARIN 5,000 UNITS/ML, 1ML SQ SCH ×3 (01:12→17:39)
[2016-11-07 01:28] VITALS: BP 125/72
[2016-11-07] MEDS: ASPIRIN 81 MG TABLET EC PO SCH (05:46)
[2016-11-07] MEDS: CARVEDILOL 12.5 MG TABLET PO SCH ×2 (05:46→17:39)
[2016-11-07 07:36] VITALS: BP 131/85
[2016-11-07] MEDS: MAGNESIUM OXIDE 400 MG TABLET PO SCH (08:54)
[2016-11-07] MEDS: FAMOTIDINE 20 MG TABLET PO SCH (08:54)
[2016-11-07] MEDS: SODIUM CHLORIDE 0.9% 1,000 ML IV SCH ×2 (11:00→17:40)
[2016-11-07 17:32] VITALS: BP 127/75
[2016-11-07 18:46] VITALS: BP 130/75
[2016-11-08 02:14] VITALS: BP 138/82
[2016-11-08] MEDS: HEPARIN 5,000 UNITS/ML, 1ML SQ SCH ×3 (02:43→17:27)
[2016-11-08] MEDS: SODIUM CHLORIDE 0.9% 1,000 ML IV SCH ×3 (03:00→19:00)
[2016-11-08] MEDS: ASPIRIN 81 MG TABLET EC PO SCH (05:10)
[2016-11-08 05:11] VITALS: BP 128/74
[2016-11-08] MEDS: CARVEDILOL 12.5 MG TABLET PO SCH ×2 (05:11→17:27)
[2016-11-08 08:00] VITALS: BP 106/64
[2016-11-08] MEDS: MAGNESIUM OXIDE 400 MG TABLET PO SCH (09:08)
[2016-11-08] MEDS: FAMOTIDINE 20 MG TABLET PO SCH (09:08)
[2016-11-08 14:27] VITALS: BP 118/70
[2016-11-08 20:00] VITALS: BP 124/70
[2016-11-09] MEDS: HEPARIN 5,000 UNITS/ML, 1ML SQ SCH ×3 (01:15→17:35)
[2016-11-09] MEDS: SODIUM CHLORIDE 0.9% 1,000 ML IV SCH ×3 (01:15→17:37)
[2016-11-09 02:18] VITALS: BP 108/63
[2016-11-09 04:58] LABS: BLOOD UREA NITROGEN 25 mg/dL (7-18)
[2016-11-09] MEDS: CARVEDILOL 12.5 MG TABLET PO SCH ×2 (05:40→17:35)
[2016-11-09] MEDS: ASPIRIN 81 MG TABLET EC PO SCH (05:40)
[2016-11-09 06:39] VITALS: BP 142/71
[2016-11-09] MEDS: FAMOTIDINE 20 MG TABLET PO SCH (09:19)
[2016-11-09] MEDS: MAGNESIUM OXIDE 400 MG TABLET PO SCH (09:19)
[2016-11-09 13:56] VITALS: BP 123/67
[2016-11-09 17:34] VITALS: BP 131/74
[2016-11-09 19:58] VITALS: BP 142/77
[2016-11-10 01:05] VITALS: BP 112/61
[2016-11-10] MEDS: SODIUM CHLORIDE 0.9% 1,000 ML IV SCH ×3 (01:10→19:02)
[2016-11-10] MEDS: HEPARIN 5,000 UNITS/ML, 1ML SQ SCH ×4 (01:10→21:44)
[2016-11-10] MEDS: ASPIRIN 81 MG TABLET EC PO SCH (05:58)
[2016-11-10] MEDS: CARVEDILOL 12.5 MG TABLET PO SCH ×2 (05:58→17:08)
[2016-11-10 06:00] VITALS: BP 139/79
[2016-11-10 07:25] VITALS: BP 126/72
[2016-11-10] MEDS: MAGNESIUM OXIDE 400 MG TABLET PO SCH (08:24)
[2016-11-10] MEDS: FAMOTIDINE 20 MG TABLET PO SCH (08:24)
[2016-11-10 15:39] VITALS: BP 148/76
[2016-11-10 18:43] VITALS: BP 127/77
[2016-11-11 01:48] VITALS: BP 126/70
[2016-11-11] MEDS: ASPIRIN 81 MG TABLET EC PO SCH (06:48)
[2016-11-11] MEDS: HEPARIN 5,000 UNITS/ML, 1ML SQ SCH ×3 (06:48→22:30)
[2016-11-11] MEDS: CARVEDILOL 12.5 MG TABLET PO SCH ×2 (06:49→18:30)
[2016-11-11 08:15] VITALS: BP 127/67
[2016-11-11] MEDS: FAMOTIDINE 20 MG TABLET PO SCH (09:53)
[2016-11-11] MEDS: MAGNESIUM OXIDE 400 MG TABLET PO SCH (09:53)
[2016-11-11 13:45] VITALS: BP 124/77
[2016-11-11 19:44] VITALS: BP 163/90
[2016-11-11 20:10] VITALS: BP 131/67
[2016-11-12 02:08] VITALS: BP 141/70
[2016-11-12 05:45] LABS: BLOOD UREA NITROGEN 22 mg/dL (7-18)
[2016-11-12] MEDS: CARVEDILOL 12.5 MG TABLET PO SCH ×2 (06:00→17:25)
[2016-11-12] MEDS: HEPARIN 5,000 UNITS/ML, 1ML SQ SCH ×3 (06:17→22:23)
[2016-11-12] MEDS: ASPIRIN 81 MG TABLET EC PO SCH (06:19)
[2016-11-12 06:22] VITALS: BP 129/68
[2016-11-12 07:01] VITALS: BP 125/63
[2016-11-12] MEDS: MAGNESIUM OXIDE 400 MG TABLET PO SCH (09:00)
[2016-11-12] MEDS: FAMOTIDINE 20 MG TABLET PO SCH (09:00)
[2016-11-12 13:19] VITALS: BP 116/67
[2016-11-12 19:35] VITALS: BP 123/71
[2016-11-13 02:15] VITALS: BP 136/77
[2016-11-13 05:46] VITALS: BP 136/81
[2016-11-13] MEDS: CARVEDILOL 12.5 MG TABLET PO SCH ×2 (05:47→18:18)
[2016-11-13] MEDS: ASPIRIN 81 MG TABLET EC PO SCH (05:47)
[2016-11-13] MEDS: HEPARIN 5,000 UNITS/ML, 1ML SQ SCH ×3 (05:47→22:27)
[2016-11-13 07:03] VITALS: BP 134/68
[2016-11-13] MEDS: FAMOTIDINE 20 MG TABLET PO SCH (10:24)
[2016-11-13] MEDS: MAGNESIUM OXIDE 400 MG TABLET PO SCH (10:24)
[2016-11-13 12:48] VITALS: BP 120/71
[2016-11-13 19:56] VITALS: BP 143/70
[2016-11-14 02:29] VITALS: BP 134/76
[2016-11-14 05:58] VITALS: BP 126/78
[2016-11-14] MEDS: HEPARIN 5,000 UNITS/ML, 1ML SQ SCH ×3 (05:59→21:16)
[2016-11-14] MEDS: ASPIRIN 81 MG TABLET EC PO SCH (05:59)
[2016-11-14] MEDS: CARVEDILOL 12.5 MG TABLET PO SCH ×2 (06:00→17:29)
[2016-11-14 07:13] VITALS: BP 132/83
[2016-11-14] MEDS: MAGNESIUM OXIDE 400 MG TABLET PO SCH (09:47)
[2016-11-14] MEDS: FAMOTIDINE 20 MG TABLET PO SCH (09:47)
[2016-11-14 14:59] VITALS: BP 122/80
[2016-11-14 20:21] VITALS: BP 128/67
[2016-11-15 02:36] VITALS: BP 123/74
[2016-11-15 05:14] VITALS: BP 146/77
[2016-11-15] MEDS: ASPIRIN 81 MG TABLET EC PO SCH (05:15)
[2016-11-15] MEDS: CARVEDILOL 12.5 MG TABLET PO SCH ×2 (05:15→18:27)
[2016-11-15] MEDS: HEPARIN 5,000 UNITS/ML, 1ML SQ SCH ×3 (05:15→22:09)
[2016-11-15 09:57] VITALS: BP 134/74
[2016-11-15] MEDS: FAMOTIDINE 20 MG TABLET PO SCH (10:01)
[2016-11-15] MEDS: MAGNESIUM OXIDE 400 MG TABLET PO SCH (10:01)
[2016-11-15 16:09] VITALS: BP 142/78
[2016-11-15 20:36] VITALS: BP 110/63
[2016-11-16 02:31] VITALS: BP 132/74
[2016-11-16] MEDS: ASPIRIN 81 MG TABLET EC PO SCH (06:29)
[2016-11-16] MEDS: CARVEDILOL 12.5 MG TABLET PO SCH ×2 (06:30→18:06)
[2016-11-16] MEDS: HEPARIN 5,000 UNITS/ML, 1ML SQ SCH ×3 (06:30→23:00)
[2016-11-16 07:42] VITALS: BP 142/82
[2016-11-16] MEDS: MAGNESIUM OXIDE 400 MG TABLET PO SCH (09:21)
[2016-11-16] MEDS: FAMOTIDINE 20 MG TABLET PO SCH (09:21)
[2016-11-16] MEDS ORDERED: SILVER NITRATE STICK TP ONE (15:00)
[2016-11-16 15:35] VITALS: BP 121/69
[2016-11-16 18:06] VITALS: BP 141/69
[2016-11-16 19:48] VITALS: BP 132/71
[2016-11-17 03:21] VITALS: BP 155/93
[2016-11-17] MEDS: CARVEDILOL 12.5 MG TABLET PO SCH ×2 (06:15→18:05)
[2016-11-17] MEDS: ASPIRIN 81 MG TABLET EC PO SCH (06:15)
[2016-11-17] MEDS: MAGNESIUM OXIDE 400 MG TABLET PO SCH (07:30)
[2016-11-17] MEDS: FAMOTIDINE 20 MG TABLET PO SCH (07:30)
[2016-11-17] MEDS: HEPARIN 5,000 UNITS/ML, 1ML SQ SCH ×3 (07:31→23:07)
[2016-11-17 07:32] VITALS: BP 139/81
[2016-11-17] MEDS ORDERED: SILVER NITRATE STICK TP ONE (11:00)
[2016-11-17 13:30] VITALS: BP 128/62
[2016-11-17 18:05] VITALS: BP 143/68
[2016-11-17 18:32] VITALS: BP 126/66
[2016-11-18 05:22] VITALS: BP 149/81
[2016-11-18] MEDS: ASPIRIN 81 MG TABLET EC PO SCH (05:28)
[2016-11-18] MEDS: CARVEDILOL 12.5 MG TABLET PO SCH ×2 (05:28→17:59)
[2016-11-18 07:23] VITALS: BP 131/77
[2016-11-18] MEDS: HEPARIN 5,000 UNITS/ML, 1ML SQ SCH ×2 (10:30→17:59)
[2016-11-18] MEDS: MAGNESIUM OXIDE 400 MG TABLET PO SCH (10:30)
[2016-11-18] MEDS: FAMOTIDINE 20 MG TABLET PO SCH (10:30)
[2016-11-18 13:29] VITALS: BP 135/65
[2016-11-18 19:49] VITALS: BP 159/67
[2016-11-19] MEDS: HEPARIN 5,000 UNITS/ML, 1ML SQ SCH ×4 (00:23→23:12)
[2016-11-19 00:59] VITALS: BP 134/75
[2016-11-19] MEDS: ASPIRIN 81 MG TABLET EC PO SCH (06:23)
[2016-11-19] MEDS: CARVEDILOL 12.5 MG TABLET PO SCH ×2 (06:24→18:14)
[2016-11-19 08:13] VITALS: BP 133/68
[2016-11-19] MEDS: MAGNESIUM OXIDE 400 MG TABLET PO SCH (09:49)
[2016-11-19] MEDS: FAMOTIDINE 20 MG TABLET PO SCH (09:49)
[2016-11-19 14:48] VITALS: BP 128/75
[2016-11-19 18:12] VITALS: BP 134/67
[2016-11-19 20:00] VITALS: BP 126/73
[2016-11-20 03:46] VITALS: BP 128/91
[2016-11-20] MEDS: CARVEDILOL 12.5 MG TABLET PO SCH ×2 (05:52→16:59)
[2016-11-20] MEDS: ASPIRIN 81 MG TABLET EC PO SCH (05:52)
[2016-11-20 05:54] VITALS: BP 137/72
[2016-11-20 08:40] VITALS: BP 116/73
[2016-11-20] MEDS: MAGNESIUM OXIDE 400 MG TABLET PO SCH (08:48)
[2016-11-20] MEDS: FAMOTIDINE 20 MG TABLET PO SCH (08:48)
[2016-11-20] MEDS: HEPARIN 5,000 UNITS/ML, 1ML SQ SCH ×2 (08:49→16:59)
[2016-11-20 13:59] VITALS: BP 150/80
[2016-11-20 19:30] VITALS: BP 141/73
[2016-11-21] MEDS: HEPARIN 5,000 UNITS/ML, 1ML SQ SCH ×3 (00:34→17:30)
[2016-11-21 03:09] VITALS: BP 141/79
[2016-11-21] MEDS: ASPIRIN 81 MG TABLET EC PO SCH (05:38)
[2016-11-21] MEDS: CARVEDILOL 12.5 MG TABLET PO SCH ×2 (05:39→17:30)
[2016-11-21 06:54] VITALS: BP 141/71
[2016-11-21] MEDS: FAMOTIDINE 20 MG TABLET PO SCH (08:48)
[2016-11-21] MEDS: MAGNESIUM OXIDE 400 MG TABLET PO SCH (08:48)
[2016-11-21 13:50] VITALS: BP 149/89
[2016-11-21 17:29] VITALS: BP 151/85
[2016-11-21 19:56] VITALS: BP 132/75
[2016-11-22] MEDS: HEPARIN 5,000 UNITS/ML, 1ML SQ SCH ×3 (00:37→18:04)
[2016-11-22 02:29] VITALS: BP 138/76
[2016-11-22] MEDS: ASPIRIN 81 MG TABLET EC PO SCH (05:22)
[2016-11-22] MEDS: CARVEDILOL 12.5 MG TABLET PO SCH ×2 (05:22→18:04)
[2016-11-22 06:56] VITALS: BP 151/76
[2016-11-22] MEDS: FAMOTIDINE 20 MG TABLET PO SCH (10:35)
[2016-11-22] MEDS: MAGNESIUM OXIDE 400 MG TABLET PO SCH (10:35)
[2016-11-22 14:17] VITALS: BP 129/75
[2016-11-22 18:50] VITALS: BP 139/68
[2016-11-23] MEDS: HEPARIN 5,000 UNITS/ML, 1ML SQ SCH ×3 (00:30→16:30)
[2016-11-23 02:02] VITALS: BP 146/81
[2016-11-23] MEDS: CARVEDILOL 12.5 MG TABLET PO SCH ×2 (06:09→18:35)
[2016-11-23] MEDS: ASPIRIN 81 MG TABLET EC PO SCH (06:09)
[2016-11-23 08:02] VITALS: BP 142/79
[2016-11-23] MEDS: MAGNESIUM OXIDE 400 MG TABLET PO SCH (09:11)
[2016-11-23] MEDS: FAMOTIDINE 20 MG TABLET PO SCH (09:11)
[2016-11-23 13:46] VITALS: BP 119/63
[2016-11-23 20:05] VITALS: BP 133/66
[2016-11-24] MEDS: HEPARIN 5,000 UNITS/ML, 1ML SQ SCH ×4 (00:30→23:48)
[2016-11-24 03:40] VITALS: BP 158/87
[2016-11-24] MEDS: CARVEDILOL 12.5 MG TABLET PO SCH ×2 (06:37→18:40)
[2016-11-24] MEDS: ASPIRIN 81 MG TABLET EC PO SCH (06:37)
[2016-11-24 07:38] VITALS: BP 118/67
[2016-11-24] MEDS: FAMOTIDINE 20 MG TABLET PO SCH (09:27)
[2016-11-24] MEDS: MAGNESIUM OXIDE 400 MG TABLET PO SCH (09:27)
[2016-11-24] MEDS: DOCUSATE 100 MG CAPSULE PO PRN (09:53)
[2016-11-24 12:50] VITALS: BP 121/78
[2016-11-24 20:07] VITALS: BP 135/73
[2016-11-25 03:48] VITALS: BP 122/86
[2016-11-25] MEDS: ASPIRIN 81 MG TABLET EC PO SCH (05:38)
[2016-11-25] MEDS: CARVEDILOL 12.5 MG TABLET PO SCH ×2 (05:38→18:33)
[2016-11-25 08:07] VITALS: BP 123/64
[2016-11-25] MEDS: HEPARIN 5,000 UNITS/ML, 1ML SQ SCH ×4 (08:30→23:59)
[2016-11-25] MEDS: MAGNESIUM OXIDE 400 MG TABLET PO SCH (09:55)
[2016-11-25] MEDS: FAMOTIDINE 20 MG TABLET PO SCH (09:55)
[2016-11-25 15:30] VITALS: BP 134/70
[2016-11-25 21:03] VITALS: BP 126/69
[2016-11-26 01:27] VITALS: BP 132/75
[2016-11-26] MEDS: ASPIRIN 81 MG TABLET EC PO SCH (05:10)
[2016-11-26] MEDS: CARVEDILOL 12.5 MG TABLET PO SCH ×2 (05:10→19:12)
[2016-11-26 07:48] VITALS: BP 130/77
[2016-11-26] MEDS: HEPARIN 5,000 UNITS/ML, 1ML SQ SCH ×2 (09:32→17:18)
[2016-11-26] MEDS: FAMOTIDINE 20 MG TABLET PO SCH (09:32)
[2016-11-26] MEDS: MAGNESIUM OXIDE 400 MG TABLET PO SCH (09:32)
[2016-11-26 13:19] VITALS: BP 131/71
[2016-11-26 19:38] VITALS: BP 130/71
[2016-11-27] MEDS: HEPARIN 5,000 UNITS/ML, 1ML SQ SCH ×3 (00:30→16:25)
[2016-11-27 01:59] VITALS: BP 160/88
[2016-11-27] MEDS: ASPIRIN 81 MG TABLET EC PO SCH (05:48)
[2016-11-27] MEDS: CARVEDILOL 12.5 MG TABLET PO SCH ×2 (05:48→18:00)
[2016-11-27] MEDS: FAMOTIDINE 20 MG TABLET PO SCH (08:09)
[2016-11-27] MEDS: MAGNESIUM OXIDE 400 MG TABLET PO SCH (08:09)
[2016-11-27 08:13] VITALS: BP 131/65
[2016-11-27 12:58] VITALS: BP 144/74
[2016-11-27 20:00] VITALS: BP 113/70
[2016-11-28] MEDS: HEPARIN 5,000 UNITS/ML, 1ML SQ SCH ×3 (00:30→16:30)
[2016-11-28 02:00] VITALS: BP 138/79
[2016-11-28] MEDS: CARVEDILOL 12.5 MG TABLET PO SCH ×2 (05:46→17:31)
[2016-11-28] MEDS: ASPIRIN 81 MG TABLET EC PO SCH (05:46)
[2016-11-28 07:25] VITALS: BP 159/76
[2016-11-28] MEDS: MAGNESIUM OXIDE 400 MG TABLET PO SCH (09:52)
[2016-11-28] MEDS: FAMOTIDINE 20 MG TABLET PO SCH (09:52)
[2016-11-28 14:15] VITALS: BP 175/77
[2016-11-28 20:00] VITALS: BP 120/71
[2016-11-29] MEDS: HEPARIN 5,000 UNITS/ML, 1ML SQ SCH ×3 (00:30→16:30)
[2016-11-29 02:00] VITALS: BP 144/68
[2016-11-29 06:17] VITALS: BP 154/76
[2016-11-29] MEDS: ASPIRIN 81 MG TABLET EC PO SCH (06:17)
[2016-11-29] MEDS: CARVEDILOL 12.5 MG TABLET PO SCH ×2 (06:18→17:46)
[2016-11-29 09:40] VITALS: BP 152/80
[2016-11-29] MEDS: MAGNESIUM OXIDE 400 MG TABLET PO SCH (10:04)
[2016-11-29] MEDS: FAMOTIDINE 20 MG TABLET PO SCH (10:04)
[2016-11-29 14:40] VITALS: BP 175/72
[2016-11-29 20:30] VITALS: BP 132/78
[2016-11-30] MEDS: HEPARIN 5,000 UNITS/ML, 1ML SQ SCH ×3 (00:30→18:08)
[2016-11-30 03:45] VITALS: BP 133/76
[2016-11-30] MEDS: CARVEDILOL 12.5 MG TABLET PO SCH ×2 (06:00→18:08)
[2016-11-30] MEDS: ASPIRIN 81 MG TABLET EC PO SCH (06:01)
[2016-11-30 06:49] VITALS: BP 167/65
[2016-11-30] MEDS: FAMOTIDINE 20 MG TABLET PO SCH (10:22)
[2016-11-30] MEDS: MAGNESIUM OXIDE 400 MG TABLET PO SCH (10:22)
[2016-11-30 13:12] VITALS: BP 103/70
[2016-11-30 18:49] VITALS: BP 125/64
[2016-12-01] MEDS: HEPARIN 5,000 UNITS/ML, 1ML SQ SCH ×4 (00:30→16:30)
[2016-12-01 02:50] VITALS: BP 129/77
[2016-12-01] MEDS: CARVEDILOL 12.5 MG TABLET PO SCH ×2 (06:27→17:54)
[2016-12-01] MEDS: ASPIRIN 81 MG TABLET EC PO SCH (06:27)
[2016-12-01 06:51] VITALS: BP 125/77
[2016-12-01] MEDS: FAMOTIDINE 20 MG TABLET PO SCH (09:37)
[2016-12-01] MEDS: MAGNESIUM OXIDE 400 MG TABLET PO SCH (09:37)
[2016-12-01 12:50] VITALS: BP 113/67
[2016-12-01 18:53] VITALS: BP 104/66
[2016-12-02] MEDS: HEPARIN 5,000 UNITS/ML, 1ML SQ SCH ×3 (00:30→16:30)
[2016-12-02 01:36] VITALS: BP 148/78
[2016-12-02] MEDS: ASPIRIN 81 MG TABLET EC PO SCH (06:28)
[2016-12-02] MEDS: CARVEDILOL 12.5 MG TABLET PO SCH ×2 (06:28→17:51)
[2016-12-02 08:17] VITALS: BP 132/72
[2016-12-02] MEDS: FAMOTIDINE 20 MG TABLET PO SCH (09:38)
[2016-12-02] MEDS: MAGNESIUM OXIDE 400 MG TABLET PO SCH (09:38)
[2016-12-02 12:45] VITALS: BP 133/70
[2016-12-02 19:50] VITALS: BP 133/67
[2016-12-03] MEDS: HEPARIN 5,000 UNITS/ML, 1ML SQ SCH ×3 (00:30→16:13)
[2016-12-03 04:00] VITALS: BP 129/74
[2016-12-03] MEDS: ASPIRIN 81 MG TABLET EC PO SCH (06:17)
[2016-12-03] MEDS: CARVEDILOL 12.5 MG TABLET PO SCH ×2 (06:17→18:01)
[2016-12-03] MEDS: MAGNESIUM OXIDE 400 MG TABLET PO SCH (08:30)
[2016-12-03] MEDS: FAMOTIDINE 20 MG TABLET PO SCH (08:30)
[2016-12-03 08:34] VITALS: BP 145/76
[2016-12-03 14:20] VITALS: BP 144/71
[2016-12-03 20:27] VITALS: BP 121/67
[2016-12-04] MEDS: HEPARIN 5,000 UNITS/ML, 1ML SQ SCH ×3 (00:30→16:16)
[2016-12-04 01:55] VITALS: BP 137/67
[2016-12-04] MEDS: ASPIRIN 81 MG TABLET EC PO SCH (06:13)
[2016-12-04] MEDS: CARVEDILOL 12.5 MG TABLET PO SCH ×2 (06:13→17:39)
[2016-12-04 07:00] VITALS: BP 124/71
[2016-12-04] MEDS: MAGNESIUM OXIDE 400 MG TABLET PO SCH (09:02)
[2016-12-04] MEDS: FAMOTIDINE 20 MG TABLET PO SCH (09:02)
[2016-12-04 13:07] VITALS: BP 124/75
[2016-12-04 18:59] VITALS: BP 142/72
[2016-12-05] MEDS: HEPARIN 5,000 UNITS/ML, 1ML SQ SCH ×4 (00:30→16:30)
[2016-12-05 02:24] VITALS: BP 121/67
[2016-12-05] MEDS: CARVEDILOL 12.5 MG TABLET PO SCH ×2 (05:58→17:46)
[2016-12-05] MEDS: ASPIRIN 81 MG TABLET EC PO SCH (05:58)
[2016-12-05 07:00] VITALS: BP 128/73
[2016-12-05] MEDS: MAGNESIUM OXIDE 400 MG TABLET PO SCH (08:54)
[2016-12-05] MEDS: FAMOTIDINE 20 MG TABLET PO SCH (08:54)
[2016-12-05 12:57] VITALS: BP 128/71
[2016-12-05 19:30] VITALS: BP 130/71
[2016-12-06] MEDS: HEPARIN 5,000 UNITS/ML, 1ML SQ SCH ×3 (00:21→15:32)
[2016-12-06 02:00] VITALS: BP 124/67
[2016-12-06] MEDS: ASPIRIN 81 MG TABLET EC PO SCH (05:55)
[2016-12-06] MEDS: CARVEDILOL 12.5 MG TABLET PO SCH ×2 (05:55→17:28)
[2016-12-06 07:35] VITALS: BP 126/73
[2016-12-06] MEDS: MAGNESIUM OXIDE 400 MG TABLET PO SCH (09:04)
[2016-12-06] MEDS: FAMOTIDINE 20 MG TABLET PO SCH (09:04)
[2016-12-06 13:40] VITALS: BP 110/70
[2016-12-06 19:34] VITALS: BP 113/57
[2016-12-07] MEDS: HEPARIN 5,000 UNITS/ML, 1ML SQ SCH ×3 (00:30→16:30)
[2016-12-07 01:52] VITALS: BP 137/71
[2016-12-07] MEDS: ASPIRIN 81 MG TABLET EC PO SCH (06:14)
[2016-12-07] MEDS: CARVEDILOL 12.5 MG TABLET PO SCH ×2 (06:14→17:17)
[2016-12-07 06:41] VITALS: BP 115/71
[2016-12-07] MEDS: MAGNESIUM OXIDE 400 MG TABLET PO SCH (08:31)
[2016-12-07] MEDS: DOCUSATE 100 MG CAPSULE PO PRN (08:31)
[2016-12-07] MEDS: FAMOTIDINE 20 MG TABLET PO SCH (08:31)
[2016-12-07 13:42] VITALS: BP 118/58
[2016-12-07 20:00] VITALS: BP 106/61
[2016-12-08] MEDS: HEPARIN 5,000 UNITS/ML, 1ML SQ SCH ×3 (00:30→16:30)
[2016-12-08 02:00] VITALS: BP 129/75
[2016-12-08] MEDS: ASPIRIN 81 MG TABLET EC PO SCH (06:06)
[2016-12-08] MEDS: CARVEDILOL 12.5 MG TABLET PO SCH ×2 (06:06→17:20)
[2016-12-08] MEDS: MAGNESIUM OXIDE 400 MG TABLET PO SCH (08:18)
[2016-12-08] MEDS: FAMOTIDINE 20 MG TABLET PO SCH (08:18)
[2016-12-08] MEDS: DOCUSATE 100 MG CAPSULE PO PRN (08:18)
[2016-12-08 08:24] VITALS: BP 121/70
[2016-12-08 16:28] VITALS: BP 141/77
[2016-12-08 19:45] VITALS: BP 112/66
[2016-12-08 20:00] VITALS: BP 138/75
[2016-12-09] MEDS: HEPARIN 5,000 UNITS/ML, 1ML SQ SCH ×3 (00:30→16:30)
[2016-12-09 01:50] VITALS: BP 113/65
[2016-12-09] MEDS: CARVEDILOL 12.5 MG TABLET PO SCH ×2 (05:35→17:46)
[2016-12-09] MEDS: ASPIRIN 81 MG TABLET EC PO SCH (05:35)
[2016-12-09 07:26] VITALS: BP 127/75
[2016-12-09] MEDS: MAGNESIUM OXIDE 400 MG TABLET PO SCH (08:47)
[2016-12-09] MEDS: FAMOTIDINE 20 MG TABLET PO SCH (08:47)
[2016-12-09 12:15] VITALS: BP 122/68
[2016-12-09 17:45] VITALS: BP 133/83
[2016-12-09 18:59] VITALS: BP 130/75
[2016-12-10] MEDS: HEPARIN 5,000 UNITS/ML, 1ML SQ SCH ×3 (00:30→16:30)
[2016-12-10 01:48] VITALS: BP 131/76
[2016-12-10] MEDS: CARVEDILOL 12.5 MG TABLET PO SCH ×2 (05:17→19:44)
[2016-12-10] MEDS: DOCUSATE 100 MG CAPSULE PO PRN (05:18)
[2016-12-10] MEDS: ASPIRIN 81 MG TABLET EC PO SCH (05:18)
[2016-12-10 07:16] VITALS: BP 136/77
[2016-12-10] MEDS: MAGNESIUM OXIDE 400 MG TABLET PO SCH (11:53)
[2016-12-10] MEDS: FAMOTIDINE 20 MG TABLET PO SCH (11:53)
[2016-12-10 14:01] VITALS: BP 138/71
[2016-12-10 18:54] VITALS: BP 118/72
[2016-12-11] MEDS: HEPARIN 5,000 UNITS/ML, 1ML SQ SCH ×4 (00:30→23:32)
[2016-12-11 02:07] VITALS: BP 129/81
[2016-12-11] MEDS: ASPIRIN 81 MG TABLET EC PO SCH (05:37)
[2016-12-11] MEDS: CARVEDILOL 12.5 MG TABLET PO SCH ×2 (05:37→18:45)
[2016-12-11 08:34] VITALS: BP 127/72
[2016-12-11] MEDS: MAGNESIUM OXIDE 400 MG TABLET PO SCH (10:27)
[2016-12-11] MEDS: FAMOTIDINE 20 MG TABLET PO SCH (10:27)
[2016-12-11 14:13] VITALS: BP 130/75
[2016-12-11 19:10] VITALS: BP 134/71
[2016-12-12 02:46] VITALS: BP 123/72
[2016-12-12] MEDS: CARVEDILOL 12.5 MG TABLET PO SCH ×2 (05:24→17:27)
[2016-12-12] MEDS: ASPIRIN 81 MG TABLET EC PO SCH (05:24)
[2016-12-12 07:13] VITALS: BP 149/81
[2016-12-12] MEDS: HEPARIN 5,000 UNITS/ML, 1ML SQ SCH ×3 (08:30→20:49)
[2016-12-12] MEDS: MAGNESIUM OXIDE 400 MG TABLET PO SCH (09:06)
[2016-12-12] MEDS: FAMOTIDINE 20 MG TABLET PO SCH (09:06)
[2016-12-12 13:44] VITALS: BP 142/78
[2016-12-12 17:25] VITALS: BP 111/63
[2016-12-12 21:10] VITALS: BP 124/74
[2016-12-13 02:20] VITALS: BP 129/78
[2016-12-13] MEDS: ASPIRIN 81 MG TABLET EC PO SCH (06:12)
[2016-12-13] MEDS: CARVEDILOL 12.5 MG TABLET PO SCH ×2 (06:12→17:56)
[2016-12-13 07:48] VITALS: BP 142/85
[2016-12-13] MEDS: HEPARIN 5,000 UNITS/ML, 1ML SQ SCH ×2 (08:30→16:26)
[2016-12-13] MEDS: FAMOTIDINE 20 MG TABLET PO SCH (09:02)
[2016-12-13] MEDS: MAGNESIUM OXIDE 400 MG TABLET PO SCH (09:03)
[2016-12-13 13:57] VITALS: BP 116/70
[2016-12-13 20:00] VITALS: BP 117/64
[2016-12-14] MEDS: HEPARIN 5,000 UNITS/ML, 1ML SQ SCH ×3 (00:30→16:25)
[2016-12-14 02:37] VITALS: BP 112/72
[2016-12-14] MEDS: ASPIRIN 81 MG TABLET EC PO SCH (05:35)
[2016-12-14] MEDS: CARVEDILOL 12.5 MG TABLET PO SCH ×2 (05:35→17:47)
[2016-12-14 07:47] VITALS: BP 131/75
[2016-12-14] MEDS: FAMOTIDINE 20 MG TABLET PO SCH (08:03)
[2016-12-14] MEDS: MAGNESIUM OXIDE 400 MG TABLET PO SCH (08:03)
[2016-12-14 14:23] VITALS: BP 120/72
[2016-12-14 19:31] VITALS: BP 137/72
[2016-12-15] MEDS: HEPARIN 5,000 UNITS/ML, 1ML SQ SCH ×3 (00:30→16:13)
[2016-12-15 02:45] VITALS: BP 144/80
[2016-12-15] MEDS: ASPIRIN 81 MG TABLET EC PO SCH (05:46)
[2016-12-15] MEDS: CARVEDILOL 12.5 MG TABLET PO SCH ×2 (05:46→18:38)
[2016-12-15 07:24] VITALS: BP 119/76
[2016-12-15] MEDS: FAMOTIDINE 20 MG TABLET PO SCH (07:50)
[2016-12-15] MEDS: MAGNESIUM OXIDE 400 MG TABLET PO SCH (07:50)
[2016-12-15 13:14] VITALS: BP 133/72
[2016-12-15 20:02] VITALS: BP 120/69
[2016-12-16] MEDS: HEPARIN 5,000 UNITS/ML, 1ML SQ SCH ×3 (00:30→16:26)
[2016-12-16 01:23] VITALS: BP 126/71
[2016-12-16] MEDS: ASPIRIN 81 MG TABLET EC PO SCH (06:07)
[2016-12-16] MEDS: CARVEDILOL 12.5 MG TABLET PO SCH ×2 (06:08→17:34)
[2016-12-16] MEDS: MAGNESIUM OXIDE 400 MG TABLET PO SCH (08:07)
[2016-12-16] MEDS: FAMOTIDINE 20 MG TABLET PO SCH (08:07)
[2016-12-16 09:36] VITALS: BP 128/74
[2016-12-16 15:13] VITALS: BP 114/66
[2016-12-16 20:09] VITALS: BP 132/71
[2016-12-17] MEDS: HEPARIN 5,000 UNITS/ML, 1ML SQ SCH ×3 (00:30→16:20)
[2016-12-17 03:11] VITALS: BP 137/81
[2016-12-17] MEDS: ASPIRIN 81 MG TABLET EC PO SCH (05:37)
[2016-12-17] MEDS: CARVEDILOL 12.5 MG TABLET PO SCH ×2 (05:37→18:09)
[2016-12-17 07:41] VITALS: BP 132/78
[2016-12-17] MEDS: MAGNESIUM OXIDE 400 MG TABLET PO SCH (09:10)
[2016-12-17] MEDS: FAMOTIDINE 20 MG TABLET PO SCH (09:24)
[2016-12-17 15:19] VITALS: BP 117/69
[2016-12-17 18:07] VITALS: BP 137/68
[2016-12-17 19:21] VITALS: BP 132/74
[2016-12-18] MEDS: HEPARIN 5,000 UNITS/ML, 1ML SQ SCH ×3 (00:30→16:30)
[2016-12-18 02:05] VITALS: BP 140/90
[2016-12-18] MEDS: CARVEDILOL 12.5 MG TABLET PO SCH ×2 (06:03→17:26)
[2016-12-18] MEDS: ASPIRIN 81 MG TABLET EC PO SCH (06:03)
[2016-12-18 08:00] VITALS: BP 127/78
[2016-12-18] MEDS: MAGNESIUM OXIDE 400 MG TABLET PO SCH (09:16)
[2016-12-18] MEDS: FAMOTIDINE 20 MG TABLET PO SCH (09:16)
[2016-12-18 14:07] VITALS: BP 97/64
[2016-12-18 17:25] VITALS: BP 137/76
[2016-12-18 19:19] VITALS: BP 121/74
[2016-12-19] MEDS: HEPARIN 5,000 UNITS/ML, 1ML SQ SCH ×3 (00:30→16:30)
[2016-12-19 02:55] VITALS: BP 131/76
[2016-12-19] MEDS: ASPIRIN 81 MG TABLET EC PO SCH (06:13)
[2016-12-19] MEDS: CARVEDILOL 12.5 MG TABLET PO SCH ×2 (06:13→17:30)
[2016-12-19 06:55] VITALS: BP 155/87
[2016-12-19] MEDS: MAGNESIUM OXIDE 400 MG TABLET PO SCH (07:54)
[2016-12-19] MEDS: FAMOTIDINE 20 MG TABLET PO SCH (07:54)
[2016-12-19 13:01] VITALS: BP 134/60
[2016-12-19 18:37] VITALS: BP 118/75
[2016-12-20] MEDS: HEPARIN 5,000 UNITS/ML, 1ML SQ SCH ×3 (00:30→16:30)
[2016-12-20 02:02] VITALS: BP 122/74
[2016-12-20] MEDS: ASPIRIN 81 MG TABLET EC PO SCH (05:53)
[2016-12-20] MEDS: CARVEDILOL 12.5 MG TABLET PO SCH ×2 (05:54→18:07)
[2016-12-20 07:10] VITALS: BP 134/77
[2016-12-20] MEDS: FAMOTIDINE 20 MG TABLET PO SCH (08:19)
[2016-12-20] MEDS: MAGNESIUM OXIDE 400 MG TABLET PO SCH (08:19)
[2016-12-20 13:41] VITALS: BP 123/67
[2016-12-20 20:26] VITALS: BP 138/76
[2016-12-21] MEDS: HEPARIN 5,000 UNITS/ML, 1ML SQ SCH ×3 (00:30→16:30)
[2016-12-21 00:53] VITALS: BP 136/75
[2016-12-21] MEDS: CARVEDILOL 12.5 MG TABLET PO SCH ×2 (06:01→18:09)
[2016-12-21] MEDS: ASPIRIN 81 MG TABLET EC PO SCH (06:01)
[2016-12-21 06:46] VITALS: BP 132/81
[2016-12-21] MEDS: MAGNESIUM OXIDE 400 MG TABLET PO SCH (09:20)
[2016-12-21] MEDS: FAMOTIDINE 20 MG TABLET PO SCH (09:20)
[2016-12-21 12:59] VITALS: BP 112/69
[2016-12-21 20:20] VITALS: BP 119/65
[2016-12-22] MEDS: HEPARIN 5,000 UNITS/ML, 1ML SQ SCH ×3 (00:24→16:30)
[2016-12-22 01:59] VITALS: BP 127/71
[2016-12-22] MEDS: ASPIRIN 81 MG TABLET EC PO SCH (05:44)
[2016-12-22] MEDS: CARVEDILOL 12.5 MG TABLET PO SCH ×2 (05:44→18:34)
[2016-12-22 06:59] VITALS: BP 138/83
[2016-12-22] MEDS: MAGNESIUM OXIDE 400 MG TABLET PO SCH (09:40)
[2016-12-22] MEDS: FAMOTIDINE 20 MG TABLET PO SCH (09:40)
[2016-12-22 13:48] VITALS: BP 129/65
[2016-12-22 19:44] VITALS: BP 116/68
[2016-12-23] MEDS: HEPARIN 5,000 UNITS/ML, 1ML SQ SCH ×3 (00:30→16:30)
[2016-12-23 01:55] VITALS: BP 114/72
[2016-12-23] MEDS: ASPIRIN 81 MG TABLET EC PO SCH (05:16)
[2016-12-23] MEDS: CARVEDILOL 12.5 MG TABLET PO SCH ×2 (05:16→17:04)
[2016-12-23 07:36] VITALS: BP 134/85
[2016-12-23] MEDS: FAMOTIDINE 20 MG TABLET PO SCH (08:09)
[2016-12-23] MEDS: MAGNESIUM OXIDE 400 MG TABLET PO SCH (08:09)
[2016-12-23 14:00] VITALS: BP 118/67
[2016-12-23 19:39] VITALS: BP 121/71
[2016-12-24] MEDS: HEPARIN 5,000 UNITS/ML, 1ML SQ SCH ×3 (00:30→16:30)
[2016-12-24 02:20] VITALS: BP 146/86
[2016-12-24] MEDS: ASPIRIN 81 MG TABLET EC PO SCH (05:41)
[2016-12-24] MEDS: CARVEDILOL 12.5 MG TABLET PO SCH ×2 (05:41→17:53)
[2016-12-24] MEDS: FAMOTIDINE 20 MG TABLET PO SCH (07:52)
[2016-12-24] MEDS: MAGNESIUM OXIDE 400 MG TABLET PO SCH (07:52)
[2016-12-24 08:09] VITALS: BP 122/77
[2016-12-24 14:24] VITALS: BP 120/69
[2016-12-24 19:03] VITALS: BP 135/79
[2016-12-25] MEDS: HEPARIN 5,000 UNITS/ML, 1ML SQ SCH ×3 (00:29→16:30)
[2016-12-25 02:00] VITALS: BP 129/77
[2016-12-25] MEDS: ASPIRIN 81 MG TABLET EC PO SCH (05:57)
[2016-12-25] MEDS: CARVEDILOL 12.5 MG TABLET PO SCH ×2 (05:57→18:18)
[2016-12-25] MEDS: MAGNESIUM OXIDE 400 MG TABLET PO SCH (07:53)
[2016-12-25] MEDS: FAMOTIDINE 20 MG TABLET PO SCH (07:53)
[2016-12-25 08:14] VITALS: BP 124/84
[2016-12-25 13:37] VITALS: BP 122/71
[2016-12-25 20:43] VITALS: BP 119/66
[2016-12-26] MEDS: HEPARIN 5,000 UNITS/ML, 1ML SQ SCH ×3 (00:30→16:17)
[2016-12-26 02:00] VITALS: BP 122/72
[2016-12-26] MEDS: CARVEDILOL 12.5 MG TABLET PO SCH ×2 (05:40→18:23)
[2016-12-26] MEDS: ASPIRIN 81 MG TABLET EC PO SCH (05:40)
[2016-12-26] MEDS: FAMOTIDINE 20 MG TABLET PO SCH (08:36)
[2016-12-26] MEDS: MAGNESIUM OXIDE 400 MG TABLET PO SCH (08:36)
[2016-12-26 08:49] VITALS: BP 127/76
[2016-12-26 13:40] VITALS: BP 114/69
[2016-12-26 20:03] VITALS: BP 142/74
[2016-12-27] MEDS: HEPARIN 5,000 UNITS/ML, 1ML SQ SCH ×3 (00:30→15:38)
[2016-12-27 02:41] VITALS: BP 151/76
[2016-12-27] MEDS: CARVEDILOL 12.5 MG TABLET PO SCH ×2 (05:02→18:24)
[2016-12-27] MEDS: ASPIRIN 81 MG TABLET EC PO SCH (05:02)
[2016-12-27 07:48] VITALS: BP 193/93
[2016-12-27] MEDS: FAMOTIDINE 20 MG TABLET PO SCH (08:04)
[2016-12-27 08:10] VITALS: BP 144/82
[2016-12-27 15:51] VITALS: BP 165/75
[2016-12-27 19:58] VITALS: BP 153/74
[2016-12-28] MEDS: HEPARIN 5,000 UNITS/ML, 1ML SQ SCH ×3 (00:30→16:28)
[2016-12-28] MEDS: ASPIRIN 81 MG TABLET EC PO SCH (05:49)
[2016-12-28] MEDS: CARVEDILOL 12.5 MG TABLET PO SCH ×2 (05:49→16:34)
[2016-12-28 05:50] VITALS: BP 171/82
[2016-12-28 09:11] VITALS: BP 132/73
[2016-12-28] MEDS: FAMOTIDINE 20 MG TABLET PO SCH (09:27)
[2016-12-28 15:55] VITALS: BP 160/73
[2016-12-28 19:10] VITALS: BP 150/101
[2016-12-29] MEDS: HEPARIN 5,000 UNITS/ML, 1ML SQ SCH ×3 (00:30→15:57)
[2016-12-29 01:37] VITALS: BP 165/75
[2016-12-29] MEDS: CARVEDILOL 12.5 MG TABLET PO SCH ×2 (05:58→18:53)
[2016-12-29] MEDS: ASPIRIN 81 MG TABLET EC PO SCH (05:58)
[2016-12-29 07:55] VITALS: BP 178/90
[2016-12-29] MEDS: FAMOTIDINE 20 MG TABLET PO SCH (09:37)
[2016-12-29 15:40] VITALS: BP 154/88
[2016-12-29 19:54] VITALS: BP 149/54
[2016-12-30] MEDS: HEPARIN 5,000 UNITS/ML, 1ML SQ SCH ×3 (00:30→16:30)
[2016-12-30 02:54] VITALS: BP 161/77
[2016-12-30] MEDS: CARVEDILOL 12.5 MG TABLET PO SCH ×2 (06:00→17:04)
[2016-12-30] MEDS: ASPIRIN 81 MG TABLET EC PO SCH (06:00)
[2016-12-30 08:09] VITALS: BP 160/70
[2016-12-30] MEDS: FAMOTIDINE 20 MG TABLET PO SCH (08:19)
[2016-12-30 15:12] VITALS: BP 157/74
[2016-12-30 17:04] VITALS: BP 138/77
[2016-12-30 19:32] VITALS: BP 119/67
[2016-12-31] MEDS: HEPARIN 5,000 UNITS/ML, 1ML SQ SCH ×2 (00:30→07:18)
[2016-12-31 01:35] VITALS: BP 153/75
[2016-12-31] MEDS: CARVEDILOL 12.5 MG TABLET PO SCH ×2 (06:12→17:18)
[2016-12-31] MEDS: ASPIRIN 81 MG TABLET EC PO SCH (06:12)
[2016-12-31] MEDS: FAMOTIDINE 20 MG TABLET PO SCH (07:44)
[2016-12-31 09:23] VITALS: BP 156/73
[2016-12-31] MEDS: ENOXAPARIN 40 MG/0.4 ML SQ SCH (14:00)
[2016-12-31 14:36] VITALS: BP 138/71
[2016-12-31 17:19] VITALS: BP 154/70
[2016-12-31 19:43] VITALS: BP 137/65
[2017-01-01 01:50] VITALS: BP 144/75
[2017-01-01] MEDS: ASPIRIN 81 MG TABLET EC PO SCH (06:36)
[2017-01-01] MEDS: CARVEDILOL 12.5 MG TABLET PO SCH ×2 (06:36→17:53)
[2017-01-01 08:35] VITALS: BP 154/81
[2017-01-01] MEDS: FAMOTIDINE 20 MG TABLET PO SCH (09:40)
[2017-01-01 14:00] VITALS: BP 159/90
[2017-01-01] MEDS: ENOXAPARIN 40 MG/0.4 ML SQ SCH (14:30)
[2017-01-01 20:00] VITALS: BP 137/74
[2017-01-02 02:00] VITALS: BP 172/85
[2017-01-02] MEDS: CARVEDILOL 12.5 MG TABLET PO SCH ×2 (05:33→17:32)
[2017-01-02] MEDS: ASPIRIN 81 MG TABLET EC PO SCH (05:33)
[2017-01-02 08:21] VITALS: BP 159/79
[2017-01-02] MEDS: FAMOTIDINE 20 MG TABLET PO SCH (08:55)
[2017-01-02] MEDS: ENOXAPARIN 40 MG/0.4 ML SQ SCH (14:00)
[2017-01-02 14:45] VITALS: BP 139/69
[2017-01-02 20:11] VITALS: BP 125/78
[2017-01-03 02:58] VITALS: BP 163/56
[2017-01-03] MEDS: CARVEDILOL 12.5 MG TABLET PO SCH ×2 (05:53→18:13)
[2017-01-03] MEDS: ASPIRIN 81 MG TABLET EC PO SCH (05:53)
[2017-01-03 08:00] VITALS: BP 155/77
[2017-01-03] MEDS: FAMOTIDINE 20 MG TABLET PO SCH (09:05)
[2017-01-03 14:00] VITALS: BP 142/70
[2017-01-03] MEDS: ENOXAPARIN 40 MG/0.4 ML SQ SCH (14:00)
[2017-01-04 03:23] VITALS: BP 143/78
[2017-01-04] MEDS: ASPIRIN 81 MG TABLET EC PO SCH (05:29)
[2017-01-04] MEDS: CARVEDILOL 12.5 MG TABLET PO SCH ×2 (05:29→18:09)
[2017-01-04 07:47] VITALS: BP 159/83
[2017-01-04] MEDS: FAMOTIDINE 20 MG TABLET PO SCH (08:02)
[2017-01-04] MEDS: ENOXAPARIN 40 MG/0.4 ML SQ SCH (13:36)
[2017-01-04 13:59] VITALS: BP 171/87
[2017-01-04 18:37] VITALS: BP 156/72
[2017-01-05 02:23] VITALS: BP 135/73
[2017-01-05] MEDS: CARVEDILOL 12.5 MG TABLET PO SCH ×2 (06:36→18:37)
[2017-01-05] MEDS: ASPIRIN 81 MG TABLET EC PO SCH (06:36)
[2017-01-05 07:08] VITALS: BP 140/80
[2017-01-05] MEDS: FAMOTIDINE 20 MG TABLET PO SCH (08:08)
[2017-01-05] MEDS: ENOXAPARIN 40 MG/0.4 ML SQ SCH (13:03)
[2017-01-05 13:17] VITALS: BP 135/62
[2017-01-05] MEDS: DOCUSATE 100 MG CAPSULE PO PRN (18:37)
[2017-01-05 20:23] VITALS: BP 137/72
[2017-01-06 00:19] VITALS: BP 161/77
[2017-01-06] MEDS: ASPIRIN 81 MG TABLET EC PO SCH (06:26)
[2017-01-06] MEDS: CARVEDILOL 12.5 MG TABLET PO SCH ×2 (06:27→18:24)
[2017-01-06] MEDS: DOCUSATE 100 MG CAPSULE PO PRN (08:05)
[2017-01-06] MEDS: FAMOTIDINE 20 MG TABLET PO SCH (08:05)
[2017-01-06 08:15] VITALS: BP 135/74
[2017-01-06] MEDS: ENOXAPARIN 40 MG/0.4 ML SQ SCH (13:40)
[2017-01-06 14:15] VITALS: BP 154/76
[2017-01-06 19:11] VITALS: BP 135/80
[2017-01-07 01:33] VITALS: BP 141/83
[2017-01-07] MEDS: ASPIRIN 81 MG TABLET EC PO SCH (06:04)
[2017-01-07] MEDS: CARVEDILOL 12.5 MG TABLET PO SCH ×2 (06:04→17:13)
[2017-01-07 06:51] VITALS: BP 132/67
[2017-01-07] MEDS: FAMOTIDINE 20 MG TABLET PO SCH (08:09)
[2017-01-07] MEDS: DOCUSATE 100 MG CAPSULE PO PRN (08:09)
[2017-01-07] MEDS: ENOXAPARIN 40 MG/0.4 ML SQ SCH (12:21)
[2017-01-07 14:32] VITALS: BP 125/74
[2017-01-07 19:12] VITALS: BP 129/78
[2017-01-08 01:19] VITALS: BP 121/72
[2017-01-08] MEDS: CARVEDILOL 12.5 MG TABLET PO SCH ×2 (06:23→18:08)
[2017-01-08] MEDS: ASPIRIN 81 MG TABLET EC PO SCH (06:23)
[2017-01-08 06:45] VITALS: BP 144/73
[2017-01-08] MEDS: FAMOTIDINE 20 MG TABLET PO SCH (07:45)
[2017-01-08 12:45] VITALS: BP 118/64
[2017-01-08] MEDS: ENOXAPARIN 40 MG/0.4 ML SQ SCH (13:22)
[2017-01-08 19:36] VITALS: BP 122/70
[2017-01-09 01:52] VITALS: BP 116/66
[2017-01-09] MEDS: ASPIRIN 81 MG TABLET EC PO SCH (05:36)
[2017-01-09] MEDS: CARVEDILOL 12.5 MG TABLET PO SCH ×2 (05:36→17:25)
[2017-01-09 06:47] VITALS: BP 152/60
[2017-01-09] MEDS: FAMOTIDINE 20 MG TABLET PO SCH (08:44)
[2017-01-09 12:45] VITALS: BP 135/78
[2017-01-09] MEDS: ENOXAPARIN 40 MG/0.4 ML SQ SCH (13:47)
[2017-01-09 19:14] VITALS: BP 129/68
[2017-01-09 19:40] VITALS: BP 121/70
[2017-01-10 01:20] VITALS: BP 120/62
[2017-01-10] MEDS: ASPIRIN 81 MG TABLET EC PO SCH (05:31)
[2017-01-10] MEDS: CARVEDILOL 12.5 MG TABLET PO SCH ×2 (05:31→17:36)
[2017-01-10 07:31] VITALS: BP 134/63
[2017-01-10] MEDS: FAMOTIDINE 20 MG TABLET PO SCH (07:46)
[2017-01-10 13:10] LABS: BLOOD UREA NITROGEN 24 mg/dL (7-18)
[2017-01-10] MEDS: ENOXAPARIN 40 MG/0.4 ML SQ SCH (13:22)
[2017-01-10 13:23] VITALS: BP 133/70
[2017-01-10 13:38] LABS: DIFF TOTAL CELLS COUNTED 100 CELL DIFF
[2017-01-10 13:39] LABS: VERIFY COUNTS? YES
[2017-01-10 13:40] LABS: ANISOCYTOSIS 1+; LARGE PLATELETS 1+
[2017-01-10 19:17] VITALS: BP 128/63
[2017-01-11 01:21] VITALS: BP 137/68
[2017-01-11] MEDS: CARVEDILOL 12.5 MG TABLET PO SCH ×2 (05:18→17:21)
[2017-01-11] MEDS: ASPIRIN 81 MG TABLET EC PO SCH (05:18)
[2017-01-11 07:34] VITALS: BP 138/72
[2017-01-11] MEDS: FAMOTIDINE 20 MG TABLET PO SCH (09:10)
[2017-01-11 13:02] VITALS: BP 142/58
[2017-01-11] MEDS: ENOXAPARIN 40 MG/0.4 ML SQ SCH (14:12)
[2017-01-11 19:11] VITALS: BP 138/65
[2017-01-12 02:33] VITALS: BP 131/63
[2017-01-12] MEDS: CARVEDILOL 12.5 MG TABLET PO SCH ×2 (05:48→17:06)
[2017-01-12] MEDS: ASPIRIN 81 MG TABLET EC PO SCH (05:49)
[2017-01-12 07:36] VITALS: BP 135/73
[2017-01-12] MEDS: FAMOTIDINE 20 MG TABLET PO SCH (08:26)
[2017-01-12 12:38] VITALS: BP 136/70
[2017-01-12] MEDS: ENOXAPARIN 40 MG/0.4 ML SQ SCH (15:51)
[2017-01-12 19:35] VITALS: BP 139/70
[2017-01-13 01:20] VITALS: BP 130/68
[2017-01-13] MEDS: CARVEDILOL 12.5 MG TABLET PO SCH ×2 (06:23→17:53)
[2017-01-13] MEDS: ASPIRIN 81 MG TABLET EC PO SCH (06:23)
[2017-01-13 07:43] VITALS: BP 149/68
[2017-01-13] MEDS: ERGOCALCIFEROL 50,000 UNIT CAPSULE PO SCH (09:01)
[2017-01-13] MEDS: FAMOTIDINE 20 MG TABLET PO SCH (09:01)
[2017-01-13 13:24] VITALS: BP 140/69
[2017-01-13] MEDS: ENOXAPARIN 40 MG/0.4 ML SQ SCH (13:54)
[2017-01-13 18:35] VITALS: BP 121/66
[2017-01-14 02:38] VITALS: BP 126/72
[2017-01-14] MEDS: ASPIRIN 81 MG TABLET EC PO SCH (06:05)
[2017-01-14] MEDS: CARVEDILOL 12.5 MG TABLET PO SCH ×2 (06:06→18:22)
[2017-01-14 07:20] VITALS: BP 136/76
[2017-01-14] MEDS: FAMOTIDINE 20 MG TABLET PO SCH (08:37)
[2017-01-14 12:57] VITALS: BP 133/72
[2017-01-14] MEDS: ENOXAPARIN 40 MG/0.4 ML SQ SCH (14:00)
[2017-01-14 19:15] VITALS: BP 127/68
[2017-01-15 02:51] VITALS: BP 131/76
[2017-01-15] MEDS: ASPIRIN 81 MG TABLET EC PO SCH (05:36)
[2017-01-15] MEDS: CARVEDILOL 12.5 MG TABLET PO SCH ×2 (05:36→17:48)
[2017-01-15 07:36] VITALS: BP 132/74
[2017-01-15] MEDS: FAMOTIDINE 20 MG TABLET PO SCH (09:57)
[2017-01-15 13:14] VITALS: BP 132/69
[2017-01-15] MEDS: ENOXAPARIN 40 MG/0.4 ML SQ SCH (14:08)
[2017-01-15 17:45] VITALS: BP 127/61
[2017-01-15 19:24] VITALS: BP 124/72
[2017-01-16 02:58] VITALS: BP 116/64
[2017-01-16] MEDS: ASPIRIN 81 MG TABLET EC PO SCH (05:35)
[2017-01-16] MEDS: CARVEDILOL 12.5 MG TABLET PO SCH ×2 (05:35→17:14)
[2017-01-16 07:08] VITALS: BP 139/75
[2017-01-16] MEDS: FAMOTIDINE 20 MG TABLET PO SCH (09:00)
[2017-01-16 12:59] VITALS: BP 115/66
[2017-01-16] MEDS: ENOXAPARIN 40 MG/0.4 ML SQ SCH (14:00)
[2017-01-16 19:26] VITALS: BP 122/70
[2017-01-17 01:12] VITALS: BP 116/64
[2017-01-17] MEDS: CARVEDILOL 12.5 MG TABLET PO SCH ×2 (05:25→18:32)
[2017-01-17] MEDS: ASPIRIN 81 MG TABLET EC PO SCH (05:29)
[2017-01-17 07:15] VITALS: BP 132/60
[2017-01-17] MEDS: FAMOTIDINE 20 MG TABLET PO SCH (09:20)
[2017-01-17] MEDS: ENOXAPARIN 40 MG/0.4 ML SQ SCH (14:00)
[2017-01-17 15:31] VITALS: BP 155/75
[2017-01-17 18:45] VITALS: BP 148/77
[2017-01-18 03:44] VITALS: BP 155/80
[2017-01-18] MEDS: CARVEDILOL 12.5 MG TABLET PO SCH ×2 (06:05→18:31)
[2017-01-18] MEDS: ASPIRIN 81 MG TABLET EC PO SCH (06:05)
[2017-01-18 07:15] VITALS: BP 152/74
[2017-01-18] MEDS: FAMOTIDINE 20 MG TABLET PO SCH (07:47)
[2017-01-18 13:44] VITALS: BP 127/76
[2017-01-18] MEDS: ENOXAPARIN 40 MG/0.4 ML SQ SCH (14:00)
[2017-01-18 18:23] VITALS: BP 174/85
[2017-01-18 20:06] VITALS: BP 142/70
[2017-01-19 02:29] VITALS: BP 169/65
[2017-01-19] MEDS: CARVEDILOL 12.5 MG TABLET PO SCH ×2 (06:13→17:28)
[2017-01-19] MEDS: ASPIRIN 81 MG TABLET EC PO SCH (06:13)
[2017-01-19 07:38] VITALS: BP 132/74
[2017-01-19] MEDS: FAMOTIDINE 20 MG TABLET PO SCH (07:39)
[2017-01-19] MEDS: ENOXAPARIN 40 MG/0.4 ML SQ SCH (14:00)
[2017-01-19 14:11] VITALS: BP 132/60
[2017-01-19 17:20] VITALS: BP 133/74
[2017-01-19 19:27] VITALS: BP 141/62
[2017-01-20] MEDS: ASPIRIN 81 MG TABLET EC PO SCH (05:25)
[2017-01-20] MEDS: CARVEDILOL 12.5 MG TABLET PO SCH ×2 (05:25→18:25)
[2017-01-20 05:29] VITALS: BP 128/69
[2017-01-20 07:53] VITALS: BP 116/67
[2017-01-20] MEDS: ERGOCALCIFEROL 50,000 UNIT CAPSULE PO SCH (09:55)
[2017-01-20] MEDS: FAMOTIDINE 20 MG TABLET PO SCH (09:55)
[2017-01-20 12:55] VITALS: BP 142/76
[2017-01-20] MEDS: ENOXAPARIN 40 MG/0.4 ML SQ SCH (13:11)
[2017-01-20 21:03] VITALS: BP 161/84
[2017-01-21 03:39] VITALS: BP 159/70
[2017-01-21] MEDS: ASPIRIN 81 MG TABLET EC PO SCH (05:37)
[2017-01-21] MEDS: CARVEDILOL 12.5 MG TABLET PO SCH ×2 (05:37→18:23)
[2017-01-21 07:41] VITALS: BP 143/73
[2017-01-21] MEDS: FAMOTIDINE 20 MG TABLET PO SCH (09:29)
[2017-01-21 13:42] VITALS: BP 131/70
[2017-01-21] MEDS: ENOXAPARIN 40 MG/0.4 ML SQ SCH (14:00)
[2017-01-21 19:17] VITALS: BP 141/72
[2017-01-22 02:21] VITALS: BP 139/80
[2017-01-22] MEDS: ASPIRIN 81 MG TABLET EC PO SCH (05:48)
[2017-01-22] MEDS: CARVEDILOL 12.5 MG TABLET PO SCH ×2 (05:48→17:41)
[2017-01-22 07:06] VITALS: BP 135/75
[2017-01-22] MEDS: FAMOTIDINE 20 MG TABLET PO SCH (08:53)
[2017-01-22 13:16] VITALS: BP 136/68
[2017-01-22] MEDS: ENOXAPARIN 40 MG/0.4 ML SQ SCH (13:38)
[2017-01-22 18:54] VITALS: BP 133/69
[2017-01-23 01:16] VITALS: BP 151/70
[2017-01-23] MEDS: ASPIRIN 81 MG TABLET EC PO SCH (06:08)
[2017-01-23] MEDS: CARVEDILOL 12.5 MG TABLET PO SCH ×2 (06:09→17:33)
[2017-01-23 07:14] VITALS: BP 150/86
[2017-01-23] MEDS: FAMOTIDINE 20 MG TABLET PO SCH (08:49)
[2017-01-23] MEDS: ENOXAPARIN 40 MG/0.4 ML SQ SCH (14:00)
[2017-01-23 14:39] VITALS: BP 122/73
[2017-01-23 18:33] VITALS: BP 139/69
[2017-01-24 02:03] VITALS: BP 135/74
[2017-01-24] MEDS: ASPIRIN 81 MG TABLET EC PO SCH (06:03)
[2017-01-24] MEDS: CARVEDILOL 12.5 MG TABLET PO SCH ×2 (06:03→17:44)
[2017-01-24 07:37] VITALS: BP 132/72
[2017-01-24] MEDS: FAMOTIDINE 20 MG TABLET PO SCH (08:48)
[2017-01-24 13:20] VITALS: BP 110/62
[2017-01-24] MEDS: ENOXAPARIN 40 MG/0.4 ML SQ SCH (13:22)
[2017-01-24 19:14] VITALS: BP 140/73
[2017-01-25 00:13] VITALS: BP 151/68
[2017-01-25] MEDS: ASPIRIN 81 MG TABLET EC PO SCH (05:45)
[2017-01-25] MEDS: CARVEDILOL 12.5 MG TABLET PO SCH ×2 (05:45→18:31)
[2017-01-25 06:41] VITALS: BP 147/63
[2017-01-25] MEDS: FAMOTIDINE 20 MG TABLET PO SCH (09:00)
[2017-01-25 13:08] VITALS: BP 149/68
[2017-01-25] MEDS: ENOXAPARIN 40 MG/0.4 ML SQ SCH (13:52)
[2017-01-25 19:30] VITALS: BP 167/80
[2017-01-26 00:19] VITALS: BP 147/77
[2017-01-26] MEDS: ASPIRIN 81 MG TABLET EC PO SCH (05:48)
[2017-01-26] MEDS: CARVEDILOL 12.5 MG TABLET PO SCH ×2 (05:49→18:40)
[2017-01-26 08:00] VITALS: BP 129/69
[2017-01-26] MEDS: FAMOTIDINE 20 MG TABLET PO SCH (09:00)
[2017-01-26 13:29] VITALS: BP 131/63
[2017-01-26] MEDS: ENOXAPARIN 40 MG/0.4 ML SQ SCH (14:23)
[2017-01-26 18:54] VITALS: BP 140/69
[2017-01-27 01:25] VITALS: BP 144/65
[2017-01-27] MEDS: ASPIRIN 81 MG TABLET EC PO SCH (05:52)
[2017-01-27] MEDS: CARVEDILOL 12.5 MG TABLET PO SCH ×2 (05:52→18:00)
[2017-01-27 08:04] VITALS: BP 171/92
[2017-01-27 13:23] VITALS: BP 149/70
[2017-01-27] MEDS: ENOXAPARIN 40 MG/0.4 ML SQ SCH (14:00)
[2017-01-27] MEDS: FAMOTIDINE 20 MG TABLET PO SCH (18:00)
[2017-01-27] MEDS: ERGOCALCIFEROL 50,000 UNIT CAPSULE PO SCH (18:00)
[2017-01-27 20:18] VITALS: BP 116/87
[2017-01-28 01:32] VITALS: BP 130/78
[2017-01-28] MEDS: CARVEDILOL 12.5 MG TABLET PO SCH ×2 (05:46→16:52)
[2017-01-28] MEDS: ASPIRIN 81 MG TABLET EC PO SCH (05:46)
[2017-01-28 08:20] VITALS: BP 149/87
[2017-01-28 14:00] VITALS: BP 121/64
[2017-01-28] MEDS: ENOXAPARIN 40 MG/0.4 ML SQ SCH (14:00)
[2017-01-28] MEDS: FAMOTIDINE 20 MG TABLET PO SCH (16:52)
[2017-01-28 19:12] VITALS: BP 125/68
[2017-01-29 01:32] VITALS: BP 119/62
[2017-01-29] MEDS: CARVEDILOL 12.5 MG TABLET PO SCH ×2 (05:15→18:12)
[2017-01-29] MEDS: ASPIRIN 81 MG TABLET EC PO SCH (05:15)
[2017-01-29 07:11] VITALS: BP_SYST 155; BP_DIAS 67; BP_DIAS 99
[2017-01-29] MEDS: FAMOTIDINE 20 MG TABLET PO SCH (09:28)
[2017-01-29 13:54] VITALS: BP 138/68
[2017-01-29] MEDS: ENOXAPARIN 40 MG/0.4 ML SQ SCH (14:00)
[2017-01-29 19:16] VITALS: BP 124/68
[2017-01-30 01:06] VITALS: BP 118/64
[2017-01-30] MEDS: CARVEDILOL 12.5 MG TABLET PO SCH ×2 (05:18→18:11)
[2017-01-30] MEDS: ASPIRIN 81 MG TABLET EC PO SCH (05:18)
[2017-01-30 07:14] VITALS: BP 145/76
[2017-01-30] MEDS: FAMOTIDINE 20 MG TABLET PO SCH (09:49)
[2017-01-30] MEDS: ENOXAPARIN 40 MG/0.4 ML SQ SCH ×2 (14:13→14:14)
[2017-01-30 17:54] VITALS: BP 124/61
[2017-01-30 19:40] VITALS: BP 118/56
[2017-01-31 01:47] VITALS: BP 124/62
[2017-01-31] MEDS: CARVEDILOL 12.5 MG TABLET PO SCH ×2 (05:40→19:39)
[2017-01-31] MEDS: ASPIRIN 81 MG TABLET EC PO SCH (05:40)
[2017-01-31 09:00] VITALS: BP 128/73
[2017-01-31] MEDS: FAMOTIDINE 20 MG TABLET PO SCH (09:30)
[2017-01-31 13:05] VITALS: BP 159/67
[2017-01-31 19:27] VITALS: BP 134/66
[2017-02-01 02:20] VITALS: BP 140/71
[2017-02-01] MEDS: CARVEDILOL 12.5 MG TABLET PO SCH ×2 (05:46→18:00)
[2017-02-01] MEDS: ASPIRIN 81 MG TABLET EC PO SCH (05:46)
[2017-02-01 08:08] VITALS: BP 147/75
[2017-02-01] MEDS: FAMOTIDINE 20 MG TABLET PO SCH (09:59)
[2017-02-01 12:35] VITALS: BP 142/64
[2017-02-01] MEDS: ENOXAPARIN 40 MG/0.4 ML SQ SCH (14:00)
[2017-02-01 18:49] VITALS: BP 149/74
[2017-02-02 03:33] VITALS: BP 164/72
[2017-02-02] MEDS: CARVEDILOL 12.5 MG TABLET PO SCH ×2 (05:28→17:41)
[2017-02-02] MEDS: ASPIRIN 81 MG TABLET EC PO SCH (05:28)
[2017-02-02 06:52] VITALS: BP 142/60
[2017-02-02] MEDS: FAMOTIDINE 20 MG TABLET PO SCH (09:00)
[2017-02-02] MEDS: ENOXAPARIN 40 MG/0.4 ML SQ SCH (14:00)
[2017-02-02 14:02] VITALS: BP 142/72
[2017-02-02 21:28] VITALS: BP 152/75
[2017-02-03 03:59] VITALS: BP 140/72
[2017-02-03] MEDS: ASPIRIN 81 MG TABLET EC PO SCH (06:00)
[2017-02-03] MEDS: CARVEDILOL 12.5 MG TABLET PO SCH ×2 (06:00→18:12)
[2017-02-03 08:39] VITALS: BP 129/75
[2017-02-03] MEDS: ENOXAPARIN 40 MG/0.4 ML SQ SCH (14:00)
[2017-02-03 17:03] VITALS: BP 149/75
[2017-02-03] MEDS: ERGOCALCIFEROL 50,000 UNIT CAPSULE PO SCH (18:12)
[2017-02-03] MEDS: FAMOTIDINE 20 MG TABLET PO SCH (18:12)
[2017-02-03 18:56] VITALS: BP 139/72
[2017-02-04 01:14] VITALS: BP 131/89
[2017-02-04] MEDS: ASPIRIN 81 MG TABLET EC PO SCH (05:29)
[2017-02-04] MEDS: CARVEDILOL 12.5 MG TABLET PO SCH ×2 (05:29→18:05)
[2017-02-04 07:19] VITALS: BP 140/80
[2017-02-04] MEDS: FAMOTIDINE 20 MG TABLET PO SCH (09:00)
[2017-02-04] MEDS: ENOXAPARIN 40 MG/0.4 ML SQ SCH (14:00)
[2017-02-04 17:54] VITALS: BP 167/86
[2017-02-04 20:19] VITALS: BP 136/76
[2017-02-05 02:05] VITALS: BP 125/65
[2017-02-05] MEDS: CARVEDILOL 12.5 MG TABLET PO SCH ×2 (06:00→18:41)
[2017-02-05] MEDS: ASPIRIN 81 MG TABLET EC PO SCH (06:00)
[2017-02-05 07:55] VITALS: BP 135/71
[2017-02-05] MEDS: FAMOTIDINE 20 MG TABLET PO SCH (10:14)
[2017-02-05 13:29] VITALS: BP 136/73
[2017-02-05] MEDS: ENOXAPARIN 40 MG/0.4 ML SQ SCH (14:00)
[2017-02-05 18:40] VITALS: BP 126/70
[2017-02-05 21:05] VITALS: BP 148/66
[2017-02-06 02:18] VITALS: BP 124/68
[2017-02-06] MEDS: CARVEDILOL 12.5 MG TABLET PO SCH ×2 (06:36→18:31)
[2017-02-06] MEDS: ASPIRIN 81 MG TABLET EC PO SCH (06:36)
[2017-02-06 07:39] VITALS: BP 145/78
[2017-02-06] MEDS: FAMOTIDINE 20 MG TABLET PO SCH (10:36)
[2017-02-06 13:15] VITALS: BP 123/71
[2017-02-06] MEDS: ENOXAPARIN 40 MG/0.4 ML SQ SCH (14:00)
[2017-02-06 20:01] VITALS: BP 143/69
[2017-02-07 01:58] VITALS: BP 131/78
[2017-02-07] MEDS: CARVEDILOL 12.5 MG TABLET PO SCH ×2 (06:32→18:06)
[2017-02-07] MEDS: ASPIRIN 81 MG TABLET EC PO SCH (06:32)
[2017-02-07] MEDS: FAMOTIDINE 20 MG TABLET PO SCH (09:06)
[2017-02-07 09:12] VITALS: BP 122/57
[2017-02-07 13:38] VITALS: BP 144/72
[2017-02-07] MEDS: ENOXAPARIN 40 MG/0.4 ML SQ SCH (14:00)
[2017-02-07 20:24] VITALS: BP 148/65
[2017-02-08 01:21] VITALS: BP 153/65
[2017-02-08] MEDS: ASPIRIN 81 MG TABLET EC PO SCH (05:25)
[2017-02-08] MEDS: CARVEDILOL 12.5 MG TABLET PO SCH ×2 (05:25→18:28)
[2017-02-08 08:30] VITALS: BP 160/79
[2017-02-08] MEDS: FAMOTIDINE 20 MG TABLET PO SCH (09:09)
[2017-02-08 14:05] VITALS: BP 160/80
[2017-02-08] MEDS: ENOXAPARIN 40 MG/0.4 ML SQ SCH (14:11)
[2017-02-08 18:58] VITALS: BP 154/70
[2017-02-09 03:59] VITALS: BP 142/68
[2017-02-09 07:42] VITALS: BP 156/79
[2017-02-09] MEDS: ASPIRIN 81 MG TABLET EC PO SCH (08:26)
[2017-02-09] MEDS: FAMOTIDINE 20 MG TABLET PO SCH (08:26)
[2017-02-09] MEDS: CARVEDILOL 12.5 MG TABLET PO SCH ×2 (08:26→17:37)
[2017-02-09] MEDS: ENOXAPARIN 40 MG/0.4 ML SQ SCH (14:00)
[2017-02-09 14:30] VITALS: BP 152/70
[2017-02-09 17:37] VITALS: BP 163/78
[2017-02-09 19:41] VITALS: BP 142/68
[2017-02-10 04:00] VITALS: BP 144/63
[2017-02-10] MEDS: ASPIRIN 81 MG TABLET EC PO SCH (06:20)
[2017-02-10] MEDS: CARVEDILOL 12.5 MG TABLET PO SCH ×2 (06:20→17:42)
[2017-02-10] MEDS: FAMOTIDINE 20 MG TABLET PO SCH (08:04)
[2017-02-10 09:58] VITALS: BP 142/74
[2017-02-10] MEDS: ENOXAPARIN 40 MG/0.4 ML SQ SCH (14:00)
[2017-02-10 16:21] VITALS: BP 147/73
[2017-02-10] MEDS: ERGOCALCIFEROL 50,000 UNIT CAPSULE PO SCH (17:42)
[2017-02-10 19:58] VITALS: BP 165/76
[2017-02-11 00:42] VITALS: BP 143/76
[2017-02-11] MEDS: ASPIRIN 81 MG TABLET EC PO SCH (06:18)
[2017-02-11] MEDS: CARVEDILOL 12.5 MG TABLET PO SCH ×2 (06:18→17:32)
[2017-02-11] MEDS: FAMOTIDINE 20 MG TABLET PO SCH (08:10)
[2017-02-11 08:24] VITALS: BP 115/71
[2017-02-11 13:41] VITALS: BP 159/78
[2017-02-11] MEDS: ENOXAPARIN 40 MG/0.4 ML SQ SCH (14:00)
[2017-02-11 17:33] VITALS: BP 121/75
[2017-02-11 19:58] VITALS: BP 134/67
[2017-02-12 01:46] VITALS: BP 148/76
[2017-02-12] MEDS: CARVEDILOL 12.5 MG TABLET PO SCH ×2 (06:03→18:14)
[2017-02-12] MEDS: ASPIRIN 81 MG TABLET EC PO SCH (06:04)
[2017-02-12 08:21] VITALS: BP 163/80
[2017-02-12] MEDS: FAMOTIDINE 20 MG TABLET PO SCH (10:16)
[2017-02-12] MEDS: AMLODIPINE 5 MG TABLET PO SCH (12:28)
[2017-02-12 14:00] VITALS: BP 141/74
[2017-02-12] MEDS: ENOXAPARIN 40 MG/0.4 ML SQ SCH (14:00)
[2017-02-12 20:04] VITALS: BP 164/69
[2017-02-13 03:34] VITALS: BP 138/73
[2017-02-13] MEDS: CARVEDILOL 12.5 MG TABLET PO SCH ×2 (05:54→17:59)
[2017-02-13] MEDS: ASPIRIN 81 MG TABLET EC PO SCH (05:54)
[2017-02-13 08:05] VITALS: BP 134/68
[2017-02-13] MEDS: FAMOTIDINE 20 MG TABLET PO SCH (10:37)
[2017-02-13] MEDS: AMLODIPINE 5 MG TABLET PO SCH (10:37)
[2017-02-13 13:54] VITALS: BP 143/75
[2017-02-13] MEDS: ENOXAPARIN 40 MG/0.4 ML SQ SCH (14:00)
[2017-02-13 19:28] VITALS: BP 117/60
[2017-02-14 02:38] VITALS: BP 142/75
[2017-02-14] MEDS: ASPIRIN 81 MG TABLET EC PO SCH (05:28)
[2017-02-14] MEDS: CARVEDILOL 12.5 MG TABLET PO SCH ×2 (05:28→17:35)
[2017-02-14 07:13] VITALS: BP 129/67
[2017-02-14] MEDS: AMLODIPINE 5 MG TABLET PO SCH (08:56)
[2017-02-14] MEDS: FAMOTIDINE 20 MG TABLET PO SCH (08:56)
[2017-02-14] MEDS: ENOXAPARIN 40 MG/0.4 ML SQ SCH (13:03)
[2017-02-14 13:42] VITALS: BP 123/53
[2017-02-14 20:24] VITALS: BP 140/65
[2017-02-15 03:05] VITALS: BP 155/73
[2017-02-15] MEDS: ASPIRIN 81 MG TABLET EC PO SCH (06:07)
[2017-02-15] MEDS: CARVEDILOL 12.5 MG TABLET PO SCH ×2 (06:07→17:28)
[2017-02-15 06:45] VITALS: BP 115/60
[2017-02-15] MEDS: FAMOTIDINE 20 MG TABLET PO SCH (09:49)
[2017-02-15] MEDS: AMLODIPINE 5 MG TABLET PO SCH (09:49)
[2017-02-15] MEDS ORDERED: POLYETHYLENE GLYCOL 17 GM PACKET NG ONE (11:00)
[2017-02-15 13:16] VITALS: BP 129/65
[2017-02-15] MEDS: ENOXAPARIN 40 MG/0.4 ML SQ SCH (13:27)
[2017-02-15 18:29] VITALS: BP 128/67
[2017-02-16 02:00] VITALS: BP 139/78
[2017-02-16] MEDS: CARVEDILOL 12.5 MG TABLET PO SCH ×2 (05:55→17:41)
[2017-02-16] MEDS: ASPIRIN 81 MG TABLET EC PO SCH (05:56)
[2017-02-16 07:05] VITALS: BP 147/73
[2017-02-16] MEDS: FAMOTIDINE 20 MG TABLET PO SCH (08:32)
[2017-02-16] MEDS: AMLODIPINE 5 MG TABLET PO SCH (08:32)
[2017-02-16] MEDS: ENOXAPARIN 40 MG/0.4 ML SQ SCH (14:00)
[2017-02-16 17:11] VITALS: BP 135/71
[2017-02-16 21:52] VITALS: BP 132/60
[2017-02-17 06:50] VITALS: BP 133/68
[2017-02-17] MEDS: FAMOTIDINE 20 MG TABLET PO SCH (07:41)
[2017-02-17] MEDS: ASPIRIN 81 MG TABLET EC PO SCH (07:41)
[2017-02-17] MEDS: ERGOCALCIFEROL 50,000 UNIT CAPSULE PO SCH (07:42)
[2017-02-17] MEDS: CARVEDILOL 12.5 MG TABLET PO SCH ×2 (07:42→18:10)
[2017-02-17] MEDS: AMLODIPINE 5 MG TABLET PO SCH (10:15)
[2017-02-17 12:45] VITALS: BP 132/65
[2017-02-17] MEDS: ENOXAPARIN 40 MG/0.4 ML SQ SCH (14:00)
[2017-02-18 05:10] VITALS: BP 150/71
[2017-02-18] MEDS: CARVEDILOL 12.5 MG TABLET PO SCH ×2 (06:00→17:37)
[2017-02-18] MEDS: ASPIRIN 81 MG TABLET EC PO SCH (06:00)
[2017-02-18 07:36] VITALS: BP 150/76
[2017-02-18] MEDS: FAMOTIDINE 20 MG TABLET PO SCH (09:51)
[2017-02-18] MEDS: AMLODIPINE 5 MG TABLET PO SCH (09:51)
[2017-02-18] MEDS: ENOXAPARIN 40 MG/0.4 ML SQ SCH (13:17)
[2017-02-18 17:34] VITALS: BP 133/74
[2017-02-18 18:41] VITALS: BP 163/77
[2017-02-19 05:50] VITALS: BP 144/72
[2017-02-19] MEDS: ASPIRIN 81 MG TABLET EC PO SCH (06:00)
[2017-02-19] MEDS: CARVEDILOL 12.5 MG TABLET PO SCH ×2 (06:00→18:54)
[2017-02-19 08:19] VITALS: BP 154/70
[2017-02-19] MEDS: FAMOTIDINE 20 MG TABLET PO SCH (08:35)
[2017-02-19] MEDS: AMLODIPINE 5 MG TABLET PO SCH (08:35)
[2017-02-19] MEDS: ENOXAPARIN 40 MG/0.4 ML SQ SCH (12:48)
[2017-02-19 18:39] VITALS: BP 143/70
[2017-02-20 04:42] VITALS: BP 133/61
[2017-02-20] MEDS: CARVEDILOL 12.5 MG TABLET PO SCH ×2 (05:38→17:21)
[2017-02-20] MEDS: ASPIRIN 81 MG TABLET EC PO SCH (05:38)
[2017-02-20 07:11] VITALS: BP 133/65
[2017-02-20] MEDS: AMLODIPINE 5 MG TABLET PO SCH (10:15)
[2017-02-20] MEDS: FAMOTIDINE 20 MG TABLET PO SCH (10:15)
[2017-02-20 13:59] VITALS: BP 130/68
[2017-02-20] MEDS: ENOXAPARIN 40 MG/0.4 ML SQ SCH (14:00)
[2017-02-20 17:20] VITALS: BP 141/70
[2017-02-20 18:35] VITALS: BP 131/70
[2017-02-21 04:18] VITALS: BP 147/107
[2017-02-21] MEDS: ASPIRIN 81 MG TABLET EC PO SCH (05:50)
[2017-02-21] MEDS: CARVEDILOL 12.5 MG TABLET PO SCH ×2 (05:50→17:31)
[2017-02-21 07:14] VITALS: BP 153/75
[2017-02-21] MEDS: AMLODIPINE 5 MG TABLET PO SCH (10:08)
[2017-02-21] MEDS: FAMOTIDINE 20 MG TABLET PO SCH (10:08)
[2017-02-21] MEDS: ENOXAPARIN 40 MG/0.4 ML SQ SCH (14:00)
[2017-02-21 15:05] VITALS: BP 127/74
[2017-02-21 17:31] VITALS: BP 139/71
[2017-02-21 19:01] VITALS: BP 140/65
[2017-02-22 03:10] VITALS: BP 158/83
[2017-02-22] MEDS: CARVEDILOL 12.5 MG TABLET PO SCH ×2 (05:02→18:28)
[2017-02-22] MEDS: ASPIRIN 81 MG TABLET EC PO SCH (05:02)
[2017-02-22 06:40] VITALS: BP 123/70
[2017-02-22] MEDS: AMLODIPINE 5 MG TABLET PO SCH (10:20)
[2017-02-22] MEDS: FAMOTIDINE 20 MG TABLET PO SCH (10:20)
[2017-02-22] MEDS: ENOXAPARIN 40 MG/0.4 ML SQ SCH (13:13)
[2017-02-22 13:47] VITALS: BP 129/69
[2017-02-22 19:54] VITALS: BP 115/64
[2017-02-23 02:49] VITALS: BP 117/70
[2017-02-23] MEDS: ASPIRIN 81 MG TABLET EC PO SCH (05:37)
[2017-02-23] MEDS: CARVEDILOL 12.5 MG TABLET PO SCH ×2 (05:37→18:26)
[2017-02-23 07:17] VITALS: BP 140/69
[2017-02-23] MEDS: FAMOTIDINE 20 MG TABLET PO SCH (11:19)
[2017-02-23] MEDS: AMLODIPINE 5 MG TABLET PO SCH (11:19)
[2017-02-23 12:39] VITALS: BP 132/73
[2017-02-23] MEDS: ENOXAPARIN 40 MG/0.4 ML SQ SCH (14:00)
[2017-02-23 18:45] VITALS: BP 128/65
[2017-02-24 02:30] VITALS: BP 125/64
[2017-02-24] MEDS: CARVEDILOL 12.5 MG TABLET PO SCH ×2 (05:29→18:19)
[2017-02-24] MEDS: ASPIRIN 81 MG TABLET EC PO SCH (05:29)
[2017-02-24 06:44] VITALS: BP 130/70
[2017-02-24] MEDS: AMLODIPINE 5 MG TABLET PO SCH (09:41)
[2017-02-24] MEDS: FAMOTIDINE 20 MG TABLET PO SCH (09:41)
[2017-02-24] MEDS: ERGOCALCIFEROL 50,000 UNIT CAPSULE PO SCH (09:41)
[2017-02-24 13:18] VITALS: BP 129/67
[2017-02-24] MEDS: ENOXAPARIN 40 MG/0.4 ML SQ SCH (14:00)
[2017-02-24 19:09] VITALS: BP 133/69
[2017-02-25 02:06] VITALS: BP 141/74
[2017-02-25] MEDS: ASPIRIN 81 MG TABLET EC PO SCH (05:48)
[2017-02-25] MEDS: CARVEDILOL 12.5 MG TABLET PO SCH ×2 (05:48→18:02)
[2017-02-25 07:09] VITALS: BP 132/69
[2017-02-25] MEDS: FAMOTIDINE 20 MG TABLET PO SCH (08:29)
[2017-02-25] MEDS: AMLODIPINE 5 MG TABLET PO SCH (08:29)
[2017-02-25] MEDS: ENOXAPARIN 40 MG/0.4 ML SQ SCH (14:00)
[2017-02-25 16:15] VITALS: BP 131/71
[2017-02-25 18:57] VITALS: BP 130/68
[2017-02-26 02:10] VITALS: BP 120/67
[2017-02-26] MEDS: CARVEDILOL 12.5 MG TABLET PO SCH ×2 (06:00→18:00)
[2017-02-26] MEDS: ASPIRIN 81 MG TABLET EC PO SCH (06:00)
[2017-02-26 07:30] VITALS: BP 124/62
[2017-02-26] MEDS: AMLODIPINE 5 MG TABLET PO SCH (09:00)
[2017-02-26] MEDS: FAMOTIDINE 20 MG TABLET PO SCH (09:00)
[2017-02-26 13:30] VITALS: BP 129/70
[2017-02-26] MEDS: ENOXAPARIN 40 MG/0.4 ML SQ SCH (14:00)
[2017-02-26 18:25] VITALS: BP 118/68
[2017-02-27 01:02] VITALS: BP 114/70
[2017-02-27] MEDS: CARVEDILOL 12.5 MG TABLET PO SCH ×2 (06:00→19:34)
[2017-02-27] MEDS: ASPIRIN 81 MG TABLET EC PO SCH (06:00)
[2017-02-27] MEDS: FAMOTIDINE 20 MG TABLET PO SCH (09:00)
[2017-02-27] MEDS: AMLODIPINE 5 MG TABLET PO SCH (09:00)
[2017-02-27] MEDS: ENOXAPARIN 40 MG/0.4 ML SQ SCH (14:00)
[2017-02-27 16:01] VITALS: BP 124/60
[2017-02-27 19:23] VITALS: BP 126/73
[2017-02-28 01:09] VITALS: BP 130/72
[2017-02-28] MEDS: ASPIRIN 81 MG TABLET EC PO SCH (05:14)
[2017-02-28] MEDS: CARVEDILOL 12.5 MG TABLET PO SCH ×2 (05:14→18:43)
[2017-02-28 08:00] VITALS: BP 142/78
[2017-02-28] MEDS: AMLODIPINE 5 MG TABLET PO SCH (08:22)
[2017-02-28] MEDS: FAMOTIDINE 20 MG TABLET PO SCH (08:22)
[2017-02-28] MEDS: ENOXAPARIN 40 MG/0.4 ML SQ SCH ×2 (14:16→14:18)
[2017-02-28 14:20] VITALS: BP 125/68
[2017-02-28 19:20] VITALS: BP 144/72
[2017-03-01 02:04] VITALS: BP 130/69
[2017-03-01] MEDS: CARVEDILOL 12.5 MG TABLET PO SCH ×2 (05:37→17:39)
[2017-03-01] MEDS: ASPIRIN 81 MG TABLET EC PO SCH (05:37)
[2017-03-01 06:46] VITALS: BP 133/74
[2017-03-01] MEDS: FAMOTIDINE 20 MG TABLET PO SCH (09:40)
[2017-03-01] MEDS: AMLODIPINE 5 MG TABLET PO SCH (09:40)
[2017-03-01 13:03] VITALS: BP 135/71
[2017-03-01 19:36] VITALS: BP 140/69
[2017-03-02 03:43] VITALS: BP 130/68
[2017-03-02] MEDS: CARVEDILOL 12.5 MG TABLET PO SCH ×2 (05:40→18:34)
[2017-03-02] MEDS: ASPIRIN 81 MG TABLET EC PO SCH (05:41)
[2017-03-02 08:30] VITALS: BP 132/60
[2017-03-02] MEDS: FAMOTIDINE 20 MG TABLET PO SCH (09:20)
[2017-03-02] MEDS: AMLODIPINE 5 MG TABLET PO SCH (09:20)
[2017-03-02] MEDS: ENOXAPARIN 40 MG/0.4 ML SQ SCH (14:00)
[2017-03-02 14:30] VITALS: BP 128/64
[2017-03-02 19:50] VITALS: BP 121/60
[2017-03-03] VITALS: BP 118/63
[2017-03-03] MEDS: CARVEDILOL 12.5 MG TABLET PO SCH (06:05)
[2017-03-03] MEDS: ASPIRIN 81 MG TABLET EC PO SCH (06:05)
[2017-03-03] MEDS ORDERED: ERGO500017 PO (07:02)
[2017-03-03] MEDS ORDERED: AMLO5TAB2 PO (07:02)
[2017-03-03] MEDS ORDERED: CARV12.52 PO (07:51)
[2017-03-03] MEDS ORDERED: HYDR-3240 PO (07:51)
[2017-03-03 08:02] VITALS: BP 112/64
[2017-03-03] MEDS: FAMOTIDINE 20 MG TABLET PO SCH (09:14)
[2017-03-03] MEDS: AMLODIPINE 5 MG TABLET PO SCH (09:14)
[2017-03-03] MEDS: ERGOCALCIFEROL 50,000 UNIT CAPSULE PO SCH (09:29)
== END 2017-03-03 10:15 | disposition home or self-care (01) | DRG 602 ==
LOC: ED 13:53 → EDIP 13:58 → 3NW 15:10 → 4NOR 10-05 19:19 → 4WST 11-23 10:15 → 3NE 12-12 19:25
PROVIDERS: ADMIT Internal Medicine; ATTEND Family Medicine
PROC: 0Y910ZZ Drainage of Left Buttock, Open Approach (ICD-10-PCS; principal; 2016-10-20)
DX: L02.31 Cutaneous abscess of buttock (principal); E43 Unspecified severe protein-calorie malnutrition; L89.153 Pressure ulcer of sacral region, stage 3; I50.42 Chronic combined systolic (congestive) and diastolic (congestive) heart failure; I13.0 Hypertensive heart and chronic kidney disease with heart failure and stage 1 through stage 4 chronic kidney disease, or unspecified chronic kidney disease; L03.115 Cellulitis of right lower limb; L03.116 Cellulitis of left lower limb; N17.9 Acute kidney failure, unspecified; E87.5 Hyperkalemia; I25.10 Atherosclerotic heart disease of native coronary artery without angina pectoris; I73.9 Peripheral vascular disease, unspecified; R62.7 Adult failure to thrive; N18.3 Chronic kidney disease, stage 3 (moderate); E55.9 Vitamin D deficiency, unspecified; D64.9 Anemia, unspecified; H91.90 Unspecified hearing loss, unspecified ear; R29.6 Repeated falls; B95.62 Methicillin resistant Staphylococcus aureus infection as the cause of diseases classified elsewhere; W19.XXXA Unspecified fall, initial encounter; Z91.14 Patient's other noncompliance with medication regimen; Z59.0 Homelessness; Z87.891 Personal history of nicotine dependence; Z81.1 Family history of alcohol abuse and dependence; Z68.26 Body mass index [BMI] 26.0-26.9, adult; Z79.899 Other long term (current) drug therapy; Z79.82 Long term (current) use of aspirin; Y93.89 Activity, other specified; Y92.89 Other specified places as the place of occurrence of the external cause; Y99.8 Other external cause status; Z75.1 Person awaiting admission to adequate facility elsewhere
CPT/HCPCS: 36415; 71010; 80048; 80053; 81003; 82306; 82550; 82565; 82607; 83605; 83735; 84100; 84443; 85025; 85610; 87040; 87070; 87077; 87186; 87205; J1644; J1650; 92523-GN; J7030